=== PATIENT | female | born 1975 | race American Indian/Alaskan Native ===

== ENCOUNTER 2017-03-04 10:00 | Emergency (ER) | payer MEDICAID ==
[2017-03-04 10:14] VITALS: BP 149/95
--- NOTE | 2017-03-04 10:34 | EDM.PDOCBH ---
ED HPI GENERAL MEDICAL PROBLEM - General Chief Complaint: Drug or Alcohol Abuse Stated Complaint: MEDICAL VIA [facility]TH Time Seen by Provider: 03/04/17 10:34 Source of Information: Reports: Patient History Limitations: Reports: No Limitations - History of Present Illness INITIAL COMMENTS - FREE TEXT/NARRATIVE: pt arrived wanting to go to detox. She took an ambulance to the hosp because she was feeling so poorly. She has vomitd for the last several days. Onset: Gradual, Other (pt last drank at 3 am. ) Duration: Hour(s): Location: Reports: Generalized, Other (pt is generally feeling week. ) - Related Data Allergies Allergy/AdvReac Type Severity Reaction Status Date / Time sertraline HCl [From Zoloft] Allergy Hives Verified 03/04/17 10:24 Sulfa (Sulfonamide Allergy Hives Verified 03/04/17 10:24 Antibiotics) Home Meds: Home Meds NK [No Known Home Meds] 03/04/17 [History] Past Medical History HEENT History: Reports: Impaired Vision Psychiatric History: Reports: Addiction Social & Family History - Tobacco Use Smoking Status *Q: Never Smoker Second Hand Smoke Exposure: Yes - Alcohol Use Days Per Week of Alcohol Use: 0 - Recreational Drug Use Recreational Drug Use: No Drug Use in Last 12 Months: Yes Recreational Drug Type: Reports: Methamphetamine Recreational Drug Use Frequency: Weekly ED ROS GENERAL - Review of Systems Review Of Systems: See Below Constitutional: Reports: No Symptoms HEENT: Reports: No Symptoms Respiratory: Reports: No Symptoms Cardiovascular: Reports: No Symptoms Endocrine: Reports: No Symptoms GI/Abdominal: Reports: Nausea, Vomiting : Reports: No Symptoms Musculoskeletal: Reports: Other (pt is shakey. ) Skin: Reports: No Symptoms ED EXAM, BEHAVIORAL HEALTH - Physical Exam Exam: See Below Text/Narrative:: pt drank last about 3 am. She is not using street drugs by history. She has been vomiting for the past 8 hours. She had fluids startd in the ambulance. Exam Limited By: No Limitations General Appearance: Alert, No Apparent Distress Ears: Normal TMs Nose: Normal Inspection Throat/Mouth: Normal Inspection Head: Atraumatic Neck: Normal Inspection Respiratory/Chest: No Respiratory Distress Cardiovascular: Regular Rate, Rhythm GI/Abdominal: Soft, Non-Tender (Female) Exam: Deferred Rectal (Female) Exam: Deferred Back Exam: Normal Inspection Extremities: Normal Inspection Neurological: Alert, Normal Cognition Psychiatric: Normal Affect COURSE, BEHAVIORAL HEALTH COMP - Course Vital Signs: Last Vital Signs Temp 36.4 C 03/04/17 11:30 Pulse 85 03/04/17 11:30 Resp 16 03/04/17 11:30 BP 149/95 H 03/04/17 11:30 Pulse Ox 100 03/04/17 11:30 Orders, Labs, Meds: Active Orders 24 hr Category Date Time Status Sodium Chloride 0.9% [Normal Saline] 1,000 ml Med 03/04/17 10:45 Active IV ASDIRECTED Sodium Chloride 0.9% [Normal Saline] 1,000 ml Med 03/04/17 11:45 Active IV ASDIRECTED Medication Orders Sodium Chloride (Normal Saline) 1,000 mls @ 999 mls/hr IV ASDIRECTED EMMA Last Admin: 03/04/17 11:50 Dose: 999 mls/hr Sodium Chloride (Normal Saline) 1,000 mls @ 999 mls/hr IV ASDIRECTED EMMA Last Admin: 03/04/17 11:50 Dose: 999 mls/hr Laboratory Tests 03/04/17 03/04/17 03/04/17 Range/Units 10:35 10:35 10:51 WBC 9.6 (4.5-11.0) K/uL RBC 4.70 (3.30-5.50) M/uL Hgb 14.4 (12.0-15.0) g/dL Hct 42.4 (36.0-48.0) % MCV 90 (80-98) fL MCH 31 (27-31) pg MCHC 34 (32-36) % Plt Count 188 (150-400) K/uL Neut % (Auto) 82 H (36-66) % Lymph % (Auto) 11 L (24-44) % [place] % (Auto) 6 (2-6) % Eos % (Auto) 0 L (2-4) % Baso % (Auto) 1 (0-1) % Sodium 139 L (140-148) mmol/L Potassium 4.2 (3.6-5.2) mmol/L Chloride 105 (100-108) mmol/L Carbon Dioxide 23 (21-32) mmol/L Anion Gap 15.2 H (5.0-14.0) mmol/L BUN 15 (7-18) mg/dL Creatinine 0.6 (0.6-1.0) mg/dL Est Cr Clr Drug Dosing 106.55 mL/min Estimated GFR (MDRD) > 60 (>60) Glucose 92 (74-106) mg/dL Calcium 8.3 L (8.5-10.1) mg/dL Total Bilirubin 0.7 (0.2-1.0) mg/dL AST 67 H (15-37) U/L ALT 73 (12-78) U/L Alkaline Phosphatase 72 (46-116) U/L Total Protein 7.4 (6.4-8.2) g/dL Albumin 3.5 (3.4-5.0) g/dL Globulin 3.9 H (2.3-3.5) g/dL Albumin/Globulin Ratio 0.9 L (1.2-2.2) Lipase (73-393) U/L Urine Color Urine Appearance Urine pH (4.5-8.0) Ur Specific [place] (1.008-1.030) Urine Protein (NEGATIVE) mg/dL Urine Glucose (UA) (NEGATIVE) mg/dL Urine Ketones (NEGATIVE) mg/dL Urine Occult Blood (NEGATIVE) Urine Nitrite (NEGATIVE) Urine Bilirubin (NEGATIVE) Urine Urobilinogen (NORMAL) mg/dL Ur Leukocyte Esterase (NEGATIVE) Urine RBC (0-5) Urine WBC (0-5) Ur Epithelial Cells Amorphous Sediment Urine Bacteria Urine Mucus Urine Opiates Screen (NEGATIVE) Ur Oxycodone Screen (NEGATIVE) Urine Methadone Screen (NEGATIVE) Ur Propoxyphene Screen (NEGATIVE) Ur Barbiturates Screen (NEGATIVE) Ur Tricyclics Screen (NEGATIVE) Ur Phencyclidine Scrn (NEGATIVE) Ur Amphetamine Screen (NEGATIVE) U Methamphetamines Scrn (NEGATIVE) Urine MDMA Screen (NEGATIVE) U Benzodiazepines Scrn (NEGATIVE) U Cocaine Metab Screen (NEGATIVE) U Marijuana (THC) Screen (NEGATIVE) Ethyl Alcohol < 3 mg/dL 03/04/17 03/04/17 03/04/17 Range/Units 11:40 11:40 11:41 WBC (4.5-11.0) K/uL RBC (3.30-5.50) M/uL Hgb (12.0-15.0) g/dL Hct (36.0-48.0) % MCV (80-98) fL MCH (27-31) pg MCHC (32-36) % Plt Count (150-400) K/uL Neut % (Auto) (36-66) % Lymph % (Auto) (24-44) % [place] % (Auto) (2-6) % Eos % (Auto) (2-4) % Baso % (Auto) (0-1) % Sodium (140-148) mmol/L Potassium (3.6-5.2) mmol/L Chloride (100-108) mmol/L Carbon Dioxide (21-32) mmol/L Anion Gap (5.0-14.0) mmol/L BUN (7-18) mg/dL Creatinine (0.6-1.0) mg/dL Est Cr Clr Drug Dosing mL/min Estimated GFR (MDRD) (>60) Glucose (74-106) mg/dL Calcium (8.5-10.1) mg/dL Total Bilirubin (0.2-1.0) mg/dL AST (15-37) U/L ALT (12-78) U/L Alkaline Phosphatase (46-116) U/L Total Protein (6.4-8.2) g/dL Albumin (3.4-5.0) g/dL Globulin (2.3-3.5) g/dL Albumin/Globulin Ratio (1.2-2.2) Lipase 122 (73-393) U/L Urine Color Yellow Urine Appearance Clear Urine pH 6.0 (4.5-8.0) Ur Specific [place] 1.020 (1.008-1.030) Urine Protein Negative (NEGATIVE) mg/dL Urine Glucose (UA) Normal (NEGATIVE) mg/dL Urine Ketones 150 H (NEGATIVE) mg/dL Urine Occult Blood Negative (NEGATIVE) Urine Nitrite Negative (NEGATIVE) Urine Bilirubin Negative (NEGATIVE) Urine Urobilinogen Normal (NORMAL) mg/dL Ur Leukocyte Esterase Negative (NEGATIVE) Urine RBC Not seen (0-5) Urine WBC 0-5 (0-5) Ur Epithelial Cells Few Amorphous Sediment Not seen Urine Bacteria Not seen Urine Mucus Rare Urine Opiates Screen Negative (NEGATIVE) Ur Oxycodone Screen Negative (NEGATIVE) Urine Methadone Screen Negative (NEGATIVE) Ur Propoxyphene Screen Negative (NEGATIVE) Ur Barbiturates Screen Negative (NEGATIVE) Ur Tricyclics Screen Negative (NEGATIVE) Ur Phencyclidine Scrn Negative (NEGATIVE) Ur Amphetamine Screen Positive H (NEGATIVE) U Methamphetamines Scrn Positive H (NEGATIVE) Urine MDMA Screen Negative (NEGATIVE) U Benzodiazepines Scrn Negative (NEGATIVE) U Cocaine Metab Screen Negative (NEGATIVE) U Marijuana (THC) Screen Negative (NEGATIVE) Ethyl Alcohol mg/dL Medications Generic Name Dose Route Start Last Admin Trade Name Freq PRN Reason Stop Dose Admin Sodium Chloride 1,000 mls @ 999 mls/hr 03/04/17 10:45 03/04/17 11:50 Normal Saline IV 999 mls/hr ASDIRECTED EMMA Administration Sodium Chloride 1,000 mls @ 999 mls/hr 03/04/17 11:45 03/04/17 11:50 Normal Saline IV 999 mls/hr ASDIRECTED EMMA Administration Discontinued Medications Generic Name Dose Route Start Last Admin Trade Name Freq PRN Reason Stop Dose Admin Lorazepam 1 mg 03/04/17 10:50 03/04/17 11:50 Ativan IVPUSH 03/04/17 10:51 1 mg ONETIME ONE Administration Ondansetron HCl 4 mg 03/04/17 11:41 03/04/17 11:50 Zofran IVPUSH 03/04/17 11:42 4 mg ONETIME ONE Administration Ondansetron HCl Confirm 03/04/17 11:42 03/04/17 11:51 Zofran Administered 03/04/17 11:43 Not Given Dose 4 mg .ROUTE .ST-MED ONE Medical Clearance: 03/04/17 11:40 pt arrived nauseated. She was given zoforan in the ambulance she had a liter of fluid. 03/04/17 13:27 pt has a mild elevation in the liver enzymes. Her etoh was not high. Pt is positive for meth. 03/04/17 13:29 Departure - Departure Time of Disposition: 13:31 Disposition: DC/Tfer to Psych Hosp/Unit 65 Condition: Fair Clinical Impression: Alcohol abuse, Methamphetamine abuse - Discharge Information Referrals: PCP,None [Primary Care Provider] - Forms: ED Department Discharge Care Plan Goals: to detox, pt has a rash which may be related to meth. She can use some over the counter cortisone cream. if persistent should be rechecked. - My Orders Last 24 Hours: My Active Orders 03/04/17 10:45 Sodium Chloride 0.9% [Normal Saline] 1,000 ml IV ASDIRECTED 03/04/17 11:45 Sodium Chloride 0.9% [Normal Saline] 1,000 ml IV ASDIRECTED - Assessment/Plan Last 24 Hours: My Active Orders 03/04/17 10:45 Sodium Chloride 0.9% [Normal Saline] 1,000 ml IV ASDIRECTED 03/04/17 11:45 Sodium Chloride 0.9% [Normal Saline] 1,000 ml IV ASDIRECTED
[2017-03-04] MEDS ORDERED: Sodium Chloride 0.9% 1,000 ML IV SCH ×2 (10:45→11:45)
[2017-03-04] MEDS ORDERED: LORazepam 2 MG/ML MDV IVPUSH ONE (10:50)
[2017-03-04] MEDS ORDERED: Ondansetron 4 MG/2 ML SDV IVPUSH ONE (11:41)
[2017-03-04] MEDS ORDERED: Ondansetron 4 MG/2 ML SDV ONE (11:42)
== END 2017-03-04 15:14 ==
LOC: JP.ED 10:03
DX: F10.120 Alcohol abuse with intoxication, uncomplicated (principal); F15.10 Other stimulant abuse, uncomplicated; Y90.0 Blood alcohol level of less than 20 mg/100 ml
CPT/HCPCS: 36415; 80053; 80305; 81001; 83690; 85025; 96361; 96374; 96375; 99285; G0480; J2060; J2405; J7040

== ENCOUNTER 2017-05-02 20:45 | Emergency (ER) | payer MEDICAID ==
--- NOTE | 2017-05-02 21:36 | EDM.PDOC ---
ED HPI GENERAL MEDICAL PROBLEM - General Chief Complaint: Drug or Alcohol Abuse Stated Complaint: MEDICAL VIA [facility] Time Seen by Provider: 05/02/17 21:22 Source of Information: Reports: Patient, EMS, Old Records, RN Notes Reviewed History Limitations: Reports: Intoxication - History of Present Illness INITIAL COMMENTS - FREE TEXT/NARRATIVE: Police had checked on her, and ended up calling EMS because she was intoxicated. She was discharged from long term yesterday, violated her probiotic consuming alcohol. She is not in arrest currently but police are aware of her location of course. She wishes to be transferred to [facility]. She has been there in the past, reports that her longest period of sobriety was 6 months. She had 750 mL of vodka by herself between 3 and 9 PM today. No abdominal pain no vomiting No injuries She does feel a bit sad, and a cousin of hers today, found frozen to in his car. She is not suicidal Has an IUD in place, it has been present for 4 years denies pain Pain Score (Numeric/FACES): 0 - Related Data Allergies Allergy/AdvReac Type Severity Reaction Status Date / Time sertraline HCl [From Zoloft] Allergy Hives Verified 05/02/17 21:10 Sulfa (Sulfonamide Allergy Hives Verified 05/02/17 21:10 Antibiotics) Home Meds: Home Meds NK [No Known Home Meds] 03/04/17 [History] Past Medical History HEENT History: Reports: Impaired Vision [employer] History: Reports: Other (See Below) Other OB/BYN History: IUD Neurological History: Reports: Concussion Psychiatric History: Reports: Addiction, Other (See Below) Other Psychiatric History: ETOH Hematologic History: Reports: Anemia Dermatologic History: Reports: Other (See Below) Other Dermatologic History: dry skin - Infectious Disease History Infectious Disease History: Reports: Chicken Pox, Hepatitis A Social & Family History - Tobacco Use Smoking Status *Q: Never Smoker Second Hand Smoke Exposure: Yes - Alcohol Use Days Per Week of Alcohol Use: 0 - Recreational Drug Use Recreational Drug Use: No Drug Use in Last 12 Months: Yes Recreational Drug Type: Reports: Methamphetamine Recreational Drug Use Frequency: Weekly ED ROS GENERAL - Review of Systems Review Of Systems: Unable To Obtain (A call intoxication) ED EXAM, GENERAL - Physical Exam Exam: See Below Exam Limited By: Intoxication General Appearance: No Apparent Distress, Lethargic, Other (Vital signs are normal, very slurred speech) Eye Exam: Bilateral Eye: Normal Inspection Ears: Normal External Exam, Normal Canal, Hearing Grossly Normal Nose: Normal Inspection, Normal Mucosa Throat/Mouth: Normal Oropharynx, Other (Dental replacements, some dental tenderness in the right lower teeth) Head: Atraumatic Neck: Normal Inspection. No: Lymphadenopathy (R), Lymphadenopathy (L) Respiratory/Chest: No Respiratory Distress, Lungs Clear, No Accessory Muscle Use , Chest Non-Tender Cardiovascular: Normal Peripheral Pulses, Regular Rate, Rhythm GI/Abdominal: Normal Bowel Sounds, Soft, Non-Tender, No Distention Back Exam: Normal Inspection Neurological: No Motor/Sensory Deficits, Slow to Respond Psychiatric: Other (Labile, sometimes smiling and laughing other times withdrawn ) Skin Exam: Warm, Dry, Intact, Normal Color, No Rash Course - Vital Signs Last Recorded V/S: Last Vital Signs Temp 36.3 C 05/03/17 06:04 Pulse 84 05/03/17 06:04 Resp 20 05/03/17 06:04 BP 125/70 05/03/17 06:04 Pulse Ox 95 05/03/17 06:04 - Orders/Labs/Meds Labs: Laboratory Tests 05/02/17 05/02/17 05/02/17 Range/Units 21:23 21:23 21:23 WBC (4.5-11.0) K/uL RBC (3.30-5.50) M/uL Hgb (12.0-15.0) g/dL Hct (36.0-48.0) % MCV (80-98) fL MCH (27-31) pg MCHC (32-36) % Plt Count (150-400) K/uL Sodium (140-148) mmol/L Potassium (3.6-5.2) mmol/L Chloride (100-108) mmol/L Carbon Dioxide (21-32) mmol/L Anion Gap (5.0-14.0) mmol/L BUN (7-18) mg/dL Creatinine (0.6-1.0) mg/dL Est Cr Clr Drug Dosing mL/min Estimated GFR (MDRD) (>60) Glucose (74-106) mg/dL Calcium (8.5-10.1) mg/dL Total Bilirubin (0.2-1.0) mg/dL AST (15-37) U/L ALT (12-78) U/L Alkaline Phosphatase (46-116) U/L Total Protein (6.4-8.2) g/dL Albumin (3.4-5.0) g/dL Globulin (2.3-3.5) g/dL Albumin/Globulin Ratio (1.2-2.2) TSH, Ultra Sensitive (0.358-3.740) uIU/mL Urine Color Yellow Urine Appearance Slightly cloudy Urine pH 7.0 (4.5-8.0) Ur Specific [place] 1.010 (1.008-1.030) Urine Protein Negative (NEGATIVE) mg/dL Urine Glucose (UA) Normal (NEGATIVE) mg/dL Urine Ketones Negative (NEGATIVE) mg/dL Urine Occult Blood Negative (NEGATIVE) Urine Nitrite Negative (NEGATIVE) Urine Bilirubin Negative (NEGATIVE) Urine Urobilinogen Normal (NORMAL) mg/dL Ur Leukocyte Esterase Moderate (NEGATIVE) Urine RBC Not seen (0-5) Urine WBC 5-10 H (0-5) Ur Epithelial Cells Moderate Amorphous Sediment Few Urine Bacteria Moderate Urine Mucus Not seen Urine Other Urine HCG, Qual Negative Salicylates (2.0-20.0) mg/dL Urine Opiates Screen Negative (NEGATIVE) Ur Oxycodone Screen Negative (NEGATIVE) Urine Methadone Screen Negative (NEGATIVE) Ur Propoxyphene Screen Negative (NEGATIVE) Acetaminophen (10.0-30.0) ug/mL Ur Barbiturates Screen Negative (NEGATIVE) Ur Tricyclics Screen Negative (NEGATIVE) Ur Phencyclidine Scrn Negative (NEGATIVE) Ur Amphetamine Screen Negative (NEGATIVE) U Methamphetamines Scrn Negative (NEGATIVE) Urine MDMA Screen Negative (NEGATIVE) U Benzodiazepines Scrn Positive H (NEGATIVE) U Cocaine Metab Screen Negative (NEGATIVE) U Marijuana (THC) Screen Negative (NEGATIVE) Ethyl Alcohol mg/dL 05/02/17 05/02/17 05/02/17 Range/Units 21:29 21:29 21:29 WBC 9.3 (4.5-11.0) K/uL RBC 4.70 (3.30-5.50) M/uL Hgb 14.2 (12.0-15.0) g/dL Hct 42.1 (36.0-48.0) % MCV 90 (80-98) fL MCH 30 (27-31) pg MCHC 34 (32-36) % Plt Count 289 (150-400) K/uL Sodium 151 H (140-148) mmol/L Potassium 3.6 (3.6-5.2) mmol/L Chloride 112 H (100-108) mmol/L Carbon Dioxide 27 (21-32) mmol/L Anion Gap 15.6 H (5.0-14.0) mmol/L BUN 12 (7-18) mg/dL Creatinine 0.6 (0.6-1.0) mg/dL Est Cr Clr Drug Dosing 111.03 mL/min Estimated GFR (MDRD) > 60 (>60) Glucose 103 (74-106) mg/dL Calcium 8.0 L (8.5-10.1) mg/dL Total Bilirubin 0.2 D (0.2-1.0) mg/dL AST 24 (15-37) U/L ALT 24 (12-78) U/L Alkaline Phosphatase 59 (46-116) U/L Total Protein 6.5 (6.4-8.2) g/dL Albumin 3.1 L (3.4-5.0) g/dL Globulin 3.4 (2.3-3.5) g/dL Albumin/Globulin Ratio 0.9 L (1.2-2.2) TSH, Ultra Sensitive 0.352 L (0.358-3.740) uIU/mL Urine Color Urine Appearance Urine pH (4.5-8.0) Ur Specific [place] (1.008-1.030) Urine Protein (NEGATIVE) mg/dL Urine Glucose (UA) (NEGATIVE) mg/dL Urine Ketones (NEGATIVE) mg/dL Urine Occult Blood (NEGATIVE) Urine Nitrite (NEGATIVE) Urine Bilirubin (NEGATIVE) Urine Urobilinogen (NORMAL) mg/dL Ur Leukocyte Esterase (NEGATIVE) Urine RBC (0-5) Urine WBC (0-5) Ur Epithelial Cells Amorphous Sediment Urine Bacteria Urine Mucus Urine Other Urine HCG, Qual Salicylates 1.2 L (2.0-20.0) mg/dL Urine Opiates Screen (NEGATIVE) Ur Oxycodone Screen (NEGATIVE) Urine Methadone Screen (NEGATIVE) Ur Propoxyphene Screen (NEGATIVE) Acetaminophen 0.0 L (10.0-30.0) ug/mL Ur Barbiturates Screen (NEGATIVE) Ur Tricyclics Screen (NEGATIVE) Ur Phencyclidine Scrn (NEGATIVE) Ur Amphetamine Screen (NEGATIVE) U Methamphetamines Scrn (NEGATIVE) Urine MDMA Screen (NEGATIVE) U Benzodiazepines Scrn (NEGATIVE) U Cocaine Metab Screen (NEGATIVE) U Marijuana (THC) Screen (NEGATIVE) Ethyl Alcohol mg/dL 05/02/17 Range/Units 21:29 WBC (4.5-11.0) K/uL RBC (3.30-5.50) M/uL Hgb (12.0-15.0) g/dL Hct (36.0-48.0) % MCV (80-98) fL MCH (27-31) pg MCHC (32-36) % Plt Count (150-400) K/uL Sodium (140-148) mmol/L Potassium (3.6-5.2) mmol/L Chloride (100-108) mmol/L Carbon Dioxide (21-32) mmol/L Anion Gap (5.0-14.0) mmol/L BUN (7-18) mg/dL Creatinine (0.6-1.0) mg/dL Est Cr Clr Drug Dosing mL/min Estimated GFR (MDRD) (>60) Glucose (74-106) mg/dL Calcium (8.5-10.1) mg/dL Total Bilirubin (0.2-1.0) mg/dL AST (15-37) U/L ALT (12-78) U/L Alkaline Phosphatase (46-116) U/L Total Protein (6.4-8.2) g/dL Albumin (3.4-5.0) g/dL Globulin (2.3-3.5) g/dL Albumin/Globulin Ratio (1.2-2.2) TSH, Ultra Sensitive (0.358-3.740) uIU/mL Urine Color Urine Appearance Urine pH (4.5-8.0) Ur Specific [place] (1.008-1.030) Urine Protein (NEGATIVE) mg/dL Urine Glucose (UA) (NEGATIVE) mg/dL Urine Ketones (NEGATIVE) mg/dL Urine Occult Blood (NEGATIVE) Urine Nitrite (NEGATIVE) Urine Bilirubin (NEGATIVE) Urine Urobilinogen (NORMAL) mg/dL Ur Leukocyte Esterase (NEGATIVE) Urine RBC (0-5) Urine WBC (0-5) Ur Epithelial Cells Amorphous Sediment Urine Bacteria Urine Mucus Urine Other Urine HCG, Qual Salicylates (2.0-20.0) mg/dL Urine Opiates Screen (NEGATIVE) Ur Oxycodone Screen (NEGATIVE) Urine Methadone Screen (NEGATIVE) Ur Propoxyphene Screen (NEGATIVE) Acetaminophen (10.0-30.0) ug/mL Ur Barbiturates Screen (NEGATIVE) Ur Tricyclics Screen (NEGATIVE) Ur Phencyclidine Scrn (NEGATIVE) Ur Amphetamine Screen (NEGATIVE) U Methamphetamines Scrn (NEGATIVE) Urine MDMA Screen (NEGATIVE) U Benzodiazepines Scrn (NEGATIVE) U Cocaine Metab Screen (NEGATIVE) U Marijuana (THC) Screen (NEGATIVE) Ethyl Alcohol 320 mg/dL Meds: Medications Discontinued Medications Generic Name Dose Route Start Last Admin Trade Name Freq PRN Reason Stop Dose Admin Ondansetron HCl 4 mg 05/03/17 05:59 05/03/17 06:02 Zofran Odt PO 05/03/17 06:00 4 mg ONETIME ONE Administration - Re-Assessments/Exams Free Text/Narrative Re-Assessment/Exam: 05/02/17 21:35 41-year-old female with all call intoxication, history of chronic alcoholism 05/03/17 00:02 at this point she has been accepted as a detox transfer, however we have been unable to obtain suitable transportation for her at this time since detox and Cannot transfer females. Departure - Departure Time of Disposition: 06:24 Disposition: DC/Tfer to Inpt Rehab Fac 62 Condition: Poor Clinical Impression: Alcohol intoxication in alcoholism with blood level over 0.3 Qualifiers: Complication of substance-induced condition: uncomplicated Qualified Code(s): F10.220 - Alcohol dependence with intoxication, uncomplicated - Discharge Information Referrals: PCP,None [Primary Care Provider] - Forms: ED Department Discharge
[2017-05-03] MEDS ORDERED: Ondansetron 4 MG Tab.DIS PO ONE (05:59)
[2017-05-03 06:05] VITALS: BP 125/70
== END 2017-05-03 06:40 ==
LOC: JP.ED 20:45
DX: F10.220 Alcohol dependence with intoxication, uncomplicated (principal); Y90.8 Blood alcohol level of 240 mg/100 ml or more; Z88.2 Allergy status to sulfonamides; Z88.8 Allergy status to other drugs, medicaments and biological substances
CPT/HCPCS: 36415; 80053; 80305; 81001; 81025; 84443; 85027; 99285; A9270; G0480

== ENCOUNTER 2017-06-03 12:35 | Emergency (ER) | payer MEDICAID ==
--- NOTE | 2017-06-03 13:17 | EDM.PDOCBH ---
ED HPI GENERAL MEDICAL PROBLEM - General Chief Complaint: Drug or Alcohol Abuse Stated Complaint: MEDICAL VIA NORTH Time Seen by Provider: 06/03/17 13:05 Source of Information: Reports: Patient, EMS, Old Records, RN History Limitations: Reports: No Limitations - History of Present Illness INITIAL COMMENTS - FREE TEXT/NARRATIVE: 41 yo female brought in from her home in [place] for intoxication. Is a known alcoholic. Is here for medical clearance before admission to [place]. 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: Reports: Other (see below) (none) - Related Data Allergies Allergy/AdvReac Type Severity Reaction Status Date / Time sertraline HCl [From Zoloft] Allergy Hives Verified 05/02/17 21:10 Sulfa (Sulfonamide Allergy Hives Verified 05/02/17 21:10 Antibiotics) Home Meds: Home Meds NK [No Known Home Meds] 03/04/17 [History] Past Medical History HEENT History: Reports: Impaired Vision 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: Other (See Below) Other OB/BYN History: IUD Neurological History: Reports: Concussion Psychiatric History: Reports: Addiction, Other (See Below) Other Psychiatric History: ETOH Hematologic History: Reports: Anemia Dermatologic History: Reports: Other (See Below) Other Dermatologic History: dry skin - Infectious Disease History Infectious Disease History: Reports: Chicken Pox, Hepatitis A Social & Family History - Tobacco Use Smoking Status *Q: Never Smoker Second Hand Smoke Exposure: Yes - Alcohol Use Days Per Week of Alcohol Use: 0 - Recreational Drug Use Recreational Drug Use: No Drug Use in Last 12 Months: Yes Recreational Drug Type: Reports: Methamphetamine Recreational Drug Use Frequency: Weekly ED ROS GENERAL - Review of Systems Review Of Systems: See Below Constitutional: Reports: No Symptoms HEENT: Reports: No Symptoms Respiratory: Reports: No Symptoms Cardiovascular: Reports: No Symptoms GI/Abdominal: Reports: No Symptoms : Reports: No Symptoms Musculoskeletal: Reports: No Symptoms Skin: Reports: No Symptoms Neurological: Reports: No Symptoms Psychiatric: Reports: No Symptoms ED EXAM, BEHAVIORAL HEALTH - Physical Exam Exam: See Below Exam Limited By: No Limitations General Appearance: Alert, WD/WN, No Apparent Distress Eye Exam: Bilateral Eye: Normal Inspection Ears: Normal External Exam, Normal Canal, Hearing Grossly Normal, Normal TMs Nose: Normal Inspection, Normal Mucosa, No Blood Throat/Mouth: Normal Inspection, Normal Lips, Normal Oropharynx, Normal Voice, No Airway Compromise Head: Atraumatic, Normocephalic Neck: Normal Inspection, Supple, Non-Tender Respiratory/Chest: No Respiratory Distress, Lungs Clear, Normal Breath Sounds, No Accessory Muscle Use Cardiovascular: Regular Rate, Rhythm, No Edema GI/Abdominal: Normal Bowel Sounds, Soft, Non-Tender Back Exam: Normal Inspection. No: CVA Tenderness (R), CVA Tenderness (L) Extremities: Normal Inspection, Normal Range of Motion Neurological: Alert, Normal Mood/Affect, CN II-XII Intact, Normal Cognition, No Motor/Sensory Deficits, Oriented x 3 Psychiatric: Alert, Normal Affect, Normal Cognition, Normal Mood, Oriented Skin Exam: Warm, Dry, Intact, Normal color, No rash COURSE, BEHAVIORAL HEALTH COMP - Course Orders, Labs, Meds: Active Orders 24 hr Category Date Time Status BASIC METABOLIC PANEL,BMP [CHEM] Stat Lab 06/03/17 13:19 Received ETHANOL BLOOD MEDICAL [CHEM] Stat Lab 06/03/17 13:19 Received Laboratory Tests 06/03/1718 18 Range/Units 13:19 13:23 13:23 WBC 8.9 (4.5-11.0) K/uL RBC 5.38 (3.30-5.50) M/uL Hgb 16.4 H D (12.0-15.0) g/dL Hct 47.5 (36.0-48.0) % MCV 88 (80-98) fL MCH 31 (27-31) pg MCHC 35 (32-36) % Plt Count 262 (150-400) K/uL Urine Color Yellow Urine Appearance Turbid Urine pH 5.0 (4.5-8.0) Ur Specific Brandon 1.010 (1.008-1.030) Urine Protein Negative (NEGATIVE) mg/dL Urine Glucose (UA) Normal (NEGATIVE) mg/dL Urine Ketones Negative (NEGATIVE) mg/dL Urine Occult Blood Large (NEGATIVE) Urine Nitrite Negative (NEGATIVE) Urine Bilirubin Negative (NEGATIVE) Urine Urobilinogen Normal (NORMAL) mg/dL Ur Leukocyte Esterase Small (NEGATIVE) Urine RBC 5-10 H (0-5) Urine WBC 0-5 (0-5) Ur Epithelial Cells Few Amorphous Sediment Rare Urine Bacteria Rare Urine Mucus Not seen Urine Opiates Screen Negative (NEGATIVE) Ur Oxycodone Screen Negative (NEGATIVE) Urine Methadone Screen Negative (NEGATIVE) Ur Propoxyphene Screen Negative (NEGATIVE) Ur Barbiturates Screen Negative (NEGATIVE) Ur Tricyclics Screen Negative (NEGATIVE) Ur Phencyclidine Scrn Negative (NEGATIVE) Ur Amphetamine Screen Negative (NEGATIVE) U Methamphetamines Scrn Negative (NEGATIVE) Urine MDMA Screen Negative (NEGATIVE) U Benzodiazepines Scrn Negative (NEGATIVE) U Cocaine Metab Screen Negative (NEGATIVE) U Marijuana (THC) Screen Negative (NEGATIVE) Departure - Departure Time of Disposition: 13:33 Disposition: El[facility] 07 Condition: Fair Clinical Impression: Alcohol abuse Alcohol intoxication Qualifiers: Complication of substance-induced condition: uncomplicated Qualified Code(s): F10.920 - Alcohol use, unspecified with intoxication, uncomplicated - Discharge Information Referrals: PCP,None [Primary Care Provider] - Forms: ED Department Discharge - My Orders Last 24 Hours: My Active Orders 06/03/17 13:19 BASIC METABOLIC PANEL,BMP [CHEM] Stat ETHANOL BLOOD MEDICAL [CHEM] Stat - Assessment/Plan Last 24 Hours: My Active Orders 06/03/17 13:19 BASIC METABOLIC PANEL,BMP [CHEM] Stat ETHANOL BLOOD MEDICAL [CHEM] Stat
[2017-06-03 14:18] VITALS: BP 139/99
== END 2017-06-03 13:35 | disposition left against medical advice (07) ==
LOC: JP.ED 12:35
DX: F10.220 Alcohol dependence with intoxication, uncomplicated (principal); Y90.9 Presence of alcohol in blood, level not specified; Z88.2 Allergy status to sulfonamides; Z88.8 Allergy status to other drugs, medicaments and biological substances
CPT/HCPCS: 36415; 80048; 80305; 81001; 85027; 99284; G0480

== ENCOUNTER 2017-08-13 21:41 | Emergency (ER) | payer MEDICAID ==
[2017-08-13 21:50] VITALS: BP 130/87
--- NOTE | 2017-08-13 22:36 | EDM.PDOCBH ---
ED HPI GENERAL MEDICAL PROBLEM - General Chief Complaint: Drug or Alcohol Abuse Stated Complaint: ANXIETY Time Seen by Provider: 08/13/17 22:20 Source of Information: Reports: Patient, Old Records, RN History Limitations: Reports: No Limitations - History of Present Illness INITIAL COMMENTS - FREE TEXT/NARRATIVE: 41 yo NA female alcoholic present via EMS asking to go to [place]. Has been there before. Feels a little restless. Has no other complaints. Has been drinking today. 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: Other (see below) (none) - Related Data Allergies Allergy/AdvReac Type Severity Reaction Status Date / Time sertraline HCl [From Zoloft] Allergy Hives Verified 08/13/17 21:49 Sulfa (Sulfonamide Allergy Hives Verified 08/13/17 21:49 Antibiotics) Home Meds: Home Meds NK [No Known Home Meds] 03/04/17 [History] Past Medical History HEENT History: Reports: Impaired Vision 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 (See Below) Other OB/BYN History: IUD Neurological History: Reports: Concussion Psychiatric History: Reports: Addiction, Other (See Below) Other Psychiatric History: ETOH Hematologic History: Reports: Anemia Dermatologic History: Reports: Other (See Below) Other Dermatologic History: dry skin - Infectious Disease History Infectious Disease History: Reports: Chicken Pox, Hepatitis A Social & Family History - Tobacco Use Smoking Status *Q: Never Smoker Second Hand Smoke Exposure: Yes - Alcohol Use Days Per Week of Alcohol Use: 0 - Recreational Drug Use Recreational Drug Use: No Drug Use in Last 12 Months: Yes Recreational Drug Type: Reports: Methamphetamine Recreational Drug Use Frequency: Weekly ED ROS GENERAL - Review of Systems Review Of Systems: See Below Constitutional: Reports: No Symptoms HEENT: Reports: No Symptoms Respiratory: Reports: No Symptoms Cardiovascular: Reports: No Symptoms GI/Abdominal: Reports: No Symptoms : Reports: No Symptoms Musculoskeletal: Reports: No Symptoms Skin: Reports: No Symptoms Neurological: Reports: No Symptoms Psychiatric: Reports: No Symptoms ED EXAM, BEHAVIORAL HEALTH - Physical Exam Exam: See Below Exam Limited By: No Limitations General Appearance: Alert, WD/WN, No Apparent Distress Eye Exam: Bilateral Eye: Normal Inspection Ears: Normal External Exam, Normal Canal, Hearing Grossly Normal, Normal TMs Nose: Normal Inspection, Normal Mucosa, No Blood Throat/Mouth: Normal Inspection, Normal Lips, Normal Oropharynx, Normal Voice, No Airway Compromise Head: Atraumatic, Normocephalic Neck: Normal Inspection, Supple, Non-Tender Respiratory/Chest: No Respiratory Distress, Lungs Clear, Normal Breath Sounds, No Accessory Muscle Use Cardiovascular: Regular Rate, Rhythm GI/Abdominal: Normal Bowel Sounds, Soft, Non-Tender Back Exam: Normal Inspection. No: CVA Tenderness (R), CVA Tenderness (L) Extremities: Normal Inspection, Normal Range of Motion, Non-Tender, No Pedal Edema Neurological: Alert, Normal Mood/Affect, CN II-XII Intact, Normal Cognition, No Motor/Sensory Deficits, Oriented x 3 Psychiatric: Alert, Normal Affect, Normal Cognition, Normal Mood, Oriented Skin Exam: Warm, Dry, Intact, Normal color, No rash COURSE, BEHAVIORAL HEALTH COMP - Course Vital Signs: Last Vital Signs Temp 36.7 C 08/13/17 21:54 Pulse 86 08/13/17 21:54 Resp 18 08/13/17 21:54 BP 130/87 08/13/17 21:54 Pulse Ox 97 08/13/17 21:54 Orders, Labs, Meds: Laboratory Tests 08/13/17 Range/Units 21:57 Ethyl Alcohol 309 mg/dL Departure - Departure Time of Disposition: 00:00 Disposition: DC/Tfer to Other 70 Condition: Good Clinical Impression: Alcohol abuse Alcohol intoxication Qualifiers: Complication of substance-induced condition: uncomplicated Qualified Code(s): F10.920 - Alcohol use, unspecified with intoxication, uncomplicated Alcohol intoxication in alcoholism with blood level over 0.3 Qualifiers: Complication of substance-induced condition: uncomplicated Qualified Code(s): F10.220 - Alcohol dependence with intoxication, uncomplicated - Discharge Information Instructions: Alcohol Intoxication, [id number] Referrals: PCP,None [Primary Care Provider] - Forms: ED Department Discharge
== END 2017-08-13 23:25 | disposition other institution (70) ==
LOC: JP.ED 21:41
DX: F10.220 Alcohol dependence with intoxication, uncomplicated (principal); Y90.8 Blood alcohol level of 240 mg/100 ml or more; Z77.22 Contact with and (suspected) exposure to environmental tobacco smoke (acute) (chronic); Z88.2 Allergy status to sulfonamides; Z88.8 Allergy status to other drugs, medicaments and biological substances
CPT/HCPCS: 36415; 99285; G0480

== ENCOUNTER 2018-12-25 09:31 | Emergency (ER) | payer MEDICAID, OTHER ==
[2018-12-25 09:37] VITALS: BP 144/99; PULSE 69
--- NOTE | 2018-12-25 10:04 | EDM.PDOCBH ---
ED HPI GENERAL MEDICAL PROBLEM - General Chief Complaint: Drug or Alcohol Abuse Stated Complaint: MEDICAL VIA NORTH Time Seen by Provider: 12/25/18 09:58 Source of Information: Reports: Patient History Limitations: Reports: No Limitations - History of Present Illness INITIAL COMMENTS - FREE TEXT/NARRATIVE: pt has been having 10 to 12 drinks of vodka per day. She wants to get better. She has 2 children age 16 and 10. Her children are doing well. Onset: Today Duration: Hour(s): Location: Reports: Generalized Associated Symptoms: Reports: Nausea/Vomiting, Other (pt has been vomiting at home she is nauseated. She last drank 1 hour ago. 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 , Other (See Below) Other PULLING UNIT OPERATOR History: IUD Neurological History: Reports: Concussion Psychiatric History: Reports: Addiction, Other (See Below) Other Psychiatric History: ETOH Hematologic History: Reports: Anemia Dermatologic History: Reports: Other (See Below) Other Dermatologic History: dry skin - Infectious Disease History Infectious Disease History: Reports: Chicken Pox, Hepatitis A Social & Family History - Tobacco Use Smoking Status *Q: Never Smoker - Caffeine Use Caffeine Use: Reports: None - Alcohol Use Days Per Week of Alcohol Use: 7 Number of Drinks Per Day: 10 Total Drinks Per Week: 70 Date of Last Drink: 12/25/18 Time of Last Drink: 08:00 - Recreational Drug Use Recreational Drug Use: No - Living Situation & Occupation Living situation: Reports: with Family (lives with her Family) Occupation: Unemployed ED ROS GENERAL - Review of Systems Review Of Systems: See Below Constitutional: Reports: Decreased Appetite, Other (pt has been vomiting. ) HEENT: Reports: No Symptoms Respiratory: Reports: No Symptoms Cardiovascular: Reports: No Symptoms Endocrine: Reports: No Symptoms GI/Abdominal: Reports: Decreased Appetite, Nausea, Vomiting : Reports: No Symptoms Musculoskeletal: Reports: No Symptoms Skin: Reports: No Symptoms ED EXAM, BEHAVIORAL HEALTH - Physical Exam Exam: See Below Text/Narrative:: pt arrived with a history of very heavy drinking. She is interested in going to detox. She has had some upper abdomanal pain and has been vomiting for the past 2-3 days. Exam Limited By: No Limitations General Appearance: Alert, Anxious, Mild Distress, Other (pupils are equal and reactive. ) Ears: Normal TMs Nose: Normal Inspection Throat/Mouth: Normal Inspection Head: Atraumatic Neck: Normal Inspection Respiratory/Chest: No Respiratory Distress Cardiovascular: Regular Rate, Rhythm GI/Abdominal: Other (pt has mild tenderness in the upper abdoman. ) (Female) Exam: Deferred Rectal (Female) Exam: Deferred Back Exam: Normal Inspection Extremities: Normal Inspection Neurological: Alert, Normal Cognition, Oriented x 3 Psychiatric: Alert, Normal Cognition, Other (pt is intoxicated. ) COURSE, BEHAVIORAL HEALTH COMP - Course Vital Signs: Last Vital Signs Temp 35.2 C 12/25/18 09:45 Pulse 69 12/25/18 09:45 Resp 16 12/25/18 09:45 BP 144/99 H 12/25/18 09:45 Pulse Ox 94 L 12/25/18 09:45 Orders, Labs, Meds: Laboratory Tests 12/25/18 12/25/18 12/25/18 Range/Units 10:00 10:00 10:00 WBC 4.8 (4.5-11.0) K/uL RBC 3.84 (3.30-5.50) M/uL Hgb 12.2 D (12.0-15.0) g/dL Hct 36.5 (36.0-48.0) % MCV 95 (80-98) fL MCH 32 H (27-31) pg MCHC 33 (32-36) % Plt Count 83 L (150-400) K/uL Neut % (Auto) 50 (36-66) % Lymph % (Auto) 33 (24-44) % Morris % (Auto) 10 H (2-6) % Eos % (Auto) 4 (2-4) % Baso % (Auto) 4 H (0-1) % Sodium 140 (140-148) mmol/L Potassium 3.8 (3.6-5.2) mmol/L Chloride 103 (100-108) mmol/L Carbon Dioxide 25 (21-32) mmol/L Anion Gap 11.7 (5.0-14.0) mmol/L BUN 10 (7-18) mg/dL Creatinine 0.7 (0.6-1.0) mg/dL Est Cr Clr Drug Dosing 81.96 mL/min Estimated GFR (MDRD) > 60 (>60) Glucose 80 (74-106) mg/dL Calcium 8.4 L (8.5-10.1) mg/dL Total Bilirubin 0.9 (0.2-1.0) mg/dL AST 919 H D (15-37) U/L ALT 236 H (12-78) U/L Alkaline Phosphatase 184 H (46-116) U/L Total Protein 7.8 (6.4-8.2) g/dL Albumin 2.7 L (3.4-5.0) g/dL Globulin 5.1 H (2.3-3.5) g/dL Albumin/Globulin Ratio 0.5 L (1.2-2.2) Lipase (73-393) U/L Urine Color (YELLOW) Urine Appearance (CLEAR) Urine pH (5.0-8.0) Ur Specific Isabel (1.008-1.030) Urine Protein (NEGATIVE) mg/dL Urine Glucose (UA) (NEGATIVE) mg/dL Urine Ketones (NEGATIVE) mg/dL Urine Occult Blood (NEGATIVE) Urine Nitrite (NEGATIVE) Urine Bilirubin (NEGATIVE) Urine Urobilinogen (0.2-1.0) EU/dL Ur Leukocyte Esterase (NEGATIVE) Urine RBC (0-5) Urine WBC (0-5) Ur Epithelial Cells Amorphous Sediment Urine Bacteria Urine Mucus Urine Opiates Screen (NEGATIVE) Ur Oxycodone Screen (NEGATIVE) Urine Methadone Screen (NEGATIVE) Ur Propoxyphene Screen (NEGATIVE) Ur Barbiturates Screen (NEGATIVE) Ur Tricyclics Screen (NEGATIVE) Ur Phencyclidine Scrn (NEGATIVE) Ur Amphetamine Screen (NEGATIVE) U Methamphetamines Scrn (NEGATIVE) Urine MDMA Screen (NEGATIVE) U Benzodiazepines Scrn (NEGATIVE) U Cocaine Metab Screen (NEGATIVE) U Marijuana (THC) Screen (NEGATIVE) Ethyl Alcohol 297 mg/dL 12/25/18 12/25/18 12/25/18 Range/Units 10:42 10:49 10:49 WBC (4.5-11.0) K/uL RBC (3.30-5.50) M/uL Hgb (12.0-15.0) g/dL Hct (36.0-48.0) % MCV (80-98) fL MCH (27-31) pg MCHC (32-36) % Plt Count (150-400) K/uL Neut % (Auto) (36-66) % Lymph % (Auto) (24-44) % Morris % (Auto) (2-6) % Eos % (Auto) (2-4) % Baso % (Auto) (0-1) % Sodium (140-148) mmol/L Potassium (3.6-5.2) mmol/L Chloride (100-108) mmol/L Carbon Dioxide (21-32) mmol/L Anion Gap (5.0-14.0) mmol/L BUN (7-18) mg/dL Creatinine (0.6-1.0) mg/dL Est Cr Clr Drug Dosing mL/min Estimated GFR (MDRD) (>60) Glucose (74-106) mg/dL Calcium (8.5-10.1) mg/dL Total Bilirubin (0.2-1.0) mg/dL AST (15-37) U/L ALT (12-78) U/L Alkaline Phosphatase (46-116) U/L Total Protein (6.4-8.2) g/dL Albumin (3.4-5.0) g/dL Globulin (2.3-3.5) g/dL Albumin/Globulin Ratio (1.2-2.2) Lipase 2838 H (73-393) U/L Urine Color Yellow (YELLOW) Urine Appearance Clear (CLEAR) Urine pH 7.0 (5.0-8.0) Ur Specific Isabel 1.010 (1.008-1.030) Urine Protein Negative (NEGATIVE) mg/dL Urine Glucose (UA) Negative (NEGATIVE) mg/dL Urine Ketones Negative (NEGATIVE) mg/dL Urine Occult Blood Moderate H (NEGATIVE) Urine Nitrite Negative (NEGATIVE) Urine Bilirubin Negative (NEGATIVE) Urine Urobilinogen 0.2 (0.2-1.0) EU/dL Ur Leukocyte Esterase Negative (NEGATIVE) Urine RBC 10-20 H (0-5) Urine WBC 0-5 (0-5) Ur Epithelial Cells Moderate Amorphous Sediment Not seen Urine Bacteria Few Urine Mucus Not seen Urine Opiates Screen Negative (NEGATIVE) Ur Oxycodone Screen Negative (NEGATIVE) Urine Methadone Screen Negative (NEGATIVE) Ur Propoxyphene Screen Negative (NEGATIVE) Ur Barbiturates Screen Negative (NEGATIVE) Ur Tricyclics Screen Negative (NEGATIVE) Ur Phencyclidine Scrn Negative (NEGATIVE) Ur Amphetamine Screen Negative (NEGATIVE) U Methamphetamines Scrn Negative (NEGATIVE) Urine MDMA Screen Negative (NEGATIVE) U Benzodiazepines Scrn Negative (NEGATIVE) U Cocaine Metab Screen Negative (NEGATIVE) U Marijuana (THC) Screen Negative (NEGATIVE) Ethyl Alcohol mg/dL Medications Discontinued Medications Generic Name Dose Route Start Last Admin Trade Name Freq PRN Reason Stop Dose Admin Famotidine 20 mg 12/25/18 10:07 12/25/18 10:34 Pepcid PO 12/25/18 10:08 20 mg ONETIME ONE Administration Sodium Chloride 1,000 mls @ 999 mls/hr 12/25/18 10:45 12/25/18 11:24 Normal Saline IV 999 mls/hr ASDIRECTED EMMA Administration Sodium Chloride 1,000 mls @ 999 mls/hr 12/25/18 11:30 Normal Saline IV ASDIRECTED EMMA Lorazepam 1 mg 12/25/18 12:16 12/25/18 13:19 Ativan IVPUSH 12/25/18 12:17 Not Given ONETIME ONE Ondansetron HCl 4 mg 12/25/18 10:07 12/25/18 10:34 Zofran Odt PO 12/25/18 10:08 4 mg ONETIME ONE Administration Medical Clearance: 12/25/18 11:20 pt came to the [facility] to be cleared for [facility]. She was found to have markedly elevated liver enzymes. Her amylase is very significantly elevated. 12/27/18 18:58 pt had a US of the GB which showed A large stone in the GB neck . Pt did leave before she could be informed. Departure - Departure Time of Disposition: 13:20 Disposition: Admitted As Inpatient 66 Condition: Fair Clinical Impression: Pancreatitis, Elevated liver enzymes - Discharge Information Referrals: PCP,None [Primary Care Provider] - Forms: ED Department Discharge Care Plan Goals: admit to Dr Amaya.
[2018-12-25] MEDS ORDERED: Famotidine 20 MG Tab PO ONE (10:07)
[2018-12-25] MEDS ORDERED: Ondansetron 4 MG Tab.DIS PO ONE (10:07)
[2018-12-25] MEDS ORDERED: Sodium Chloride 0.9% 1,000 ML IV SCH ×2 (10:45→11:30)
[2018-12-25] MEDS ORDERED: LORazepam 2 MG/ML SDV IVPUSH ONE (12:16)
--- NOTE | 2018-12-25 14:23 | CRLUS ---
INDICATION: Elevated LFTs, pancreatitis TECHNIQUE: Ultrasound abdomen limited. Sonographic images of the right upper quadrant were obtained using laboy-scale and color Doppler images. COMPARISON: None FINDINGS: Liver: Normal in size diffuse fatty infiltration. No masses. No intrahepatic biliary dilatation. Gallbladder: Solitary gallstone in the gallbladder neck. Normal wall thickness. No pericholecystic fluid. Common bile duct: 4 mm. Pancreas: Well visualized. Right kidney: 0.8 cm. Normal echotexture and cortex. No masses, stones, or hydronephrosis. Vasculature: Proximal IVC is normal. IMPRESSION: Solitary gallstone in the gallbladder neck in an otherwise normal appearing gallbladder. Normal common bile duct. Fatty infiltration of the liver. Dictated by Gustavo Collier MD @ 12/25/2018 2:21:58 PM Dictated by: Gustavo Collier MD @ 12/25/2018 14:22:05 (Electronically Signed)
== END 2018-12-25 12:30 | disposition critical access hospital (66) ==
LOC: JP.ED 09:31
DX: K85.90 Acute pancreatitis without necrosis or infection, unspecified (principal); R74.8 Abnormal levels of other serum enzymes; Z88.2 Allergy status to sulfonamides; Z88.8 Allergy status to other drugs, medicaments and biological substances
CPT/HCPCS: 36415; 76705; 80053; 80305; 80320; 81001; 83690; 85025; 96360; 99284; A9270; J7030; G0480

== ENCOUNTER 2019-02-01 15:42 | Inpatient (IN) | payer MEDICAID ==
--- NOTE | 2019-02-01 16:04 | EDM.PDOC ---
<Pierce Atkins G - Last Filed: 02/01/19 18:11> ED HPI GENERAL MEDICAL PROBLEM - General Chief Complaint: Abdominal Pain Stated Complaint: ABD PAIN Time Seen by Provider: 02/01/19 15:55 Source of Information: Reports: Patient, EMS, Old Records History Limitations: Reports: No Limitations - History of Present Illness INITIAL COMMENTS - FREE TEXT/NARRATIVE: 43 yo female was here about 5 weeks ago and left AMA after a visit for pancreatitis, ETOH abuse and a gallstone in her common duct. She has continued to drink heavily since discharge. She notes that she started turning yellow about a week ago. Today she called EMS for transport here due to nausea and vomiting. Last drank ETOH earlier today. Notes that she has been bruising easily lately. Onset: Gradual Onset Date: 01/25/19 Duration: Week(s): (1), Getting Worse Location: Reports: Abdomen (nausea/vomiting), Generalized (jaundice) Quality: Reports: Other (no current pain) Severity: Moderate Improves with: Reports: None Worsens with: Reports: Other (time) Context: Reports: Other (See HPI) Associated Symptoms: Reports: Nausea/Vomiting, Other (jaundice). 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 (see below) (Zofran per EMS) Abdomen Pain Score (Numeric/FACES): 5 - Related Data Allergies Allergy/AdvReac Type Severity Reaction Status Date / Time sertraline HCl [From Zoloft] Allergy Hives Verified 02/01/19 15:53 Sulfa (Sulfonamide Allergy Hives Verified 02/01/19 15:53 Antibiotics) Home Meds: Home Meds NK [No Known Home Meds] 03/04/17 [History] Past Medical History HEENT History: Reports: Impaired Vision DOCUMENTATION ANALYST History: Reports: Ectopic , Other (See Below) Other DOCUMENTATION ANALYST History: IUD Neurological History: Reports: Concussion Psychiatric History: Reports: Addiction, Other (See Below) Other Psychiatric History: ETOH Hematologic History: Reports: Anemia Dermatologic History: Reports: Other (See Below) Other Dermatologic History: dry skin - Infectious Disease History Infectious Disease History: Reports: Chicken Pox, Hepatitis A Social & Family History - Tobacco Use Smoking Status *Q: Never Smoker - Caffeine Use Caffeine Use: Reports: None - Alcohol Use Days Per Week of Alcohol Use: 7 Number of Drinks Per Day: 10 Total Drinks Per Week: 70 - Recreational Drug Use Recreational Drug Use: No - Living Situation & Occupation Living situation: Reports: with Family (lives with her Family) Occupation: Unemployed ED ROS GENERAL - Review of Systems Review Of Systems: See Below Constitutional: Reports: Malaise HEENT: Reports: No Symptoms Respiratory: Reports: No Symptoms Cardiovascular: Reports: No Symptoms Endocrine: Reports: No Symptoms GI/Abdominal: Reports: Nausea, Vomiting. Denies: Abdominal Pain, Anorexia, Black Stool, Bloody Stool, Constipation, Diarrhea, Distension, Flatus, Hematemesis, Melena : Reports: No Symptoms Musculoskeletal: Reports: No Symptoms Skin: Reports: Jaundice, Bruising Neurological: Reports: No Symptoms ED EXAM, GI/ABD - Physical Exam Exam: See Below Exam Limited By: No Limitations General Appearance: Alert, WD/WN, No Apparent Distress Ears: Normal External Exam, Normal Canal, Hearing Grossly Normal, Normal TMs Nose: Normal Inspection, No Blood Throat/Mouth: Normal Inspection, Normal Lips, Normal Oropharynx, Normal Voice, No Airway Compromise Head: Atraumatic, Normocephalic Neck: Normal Inspection Respiratory/Chest: No Respiratory Distress, Lungs Clear, Normal Breath Sounds, No Accessory Muscle Use Cardiovascular: Regular Rate, Rhythm, No Edema GI/Abdominal Exam: Normal Bowel Sounds, Soft, No Distention, Tender (RUQ and LUQ 's). No: Non-Tender, Distended, Guarding, Rigid, Rebound, Hernia Back Exam: Normal Inspection. No: CVA Tenderness (R), CVA Tenderness (L) Extremities: Normal Inspection, Normal Range of Motion, Non-Tender, No Pedal Edema Neurological: Alert, Oriented, CN II-XII Intact, Normal Cognition, No Motor/ Sensory Deficits Psychiatric: Normal Affect, Normal Mood Skin Exam: Warm, Dry, Intact, No Rash, Ecchymosis, Jaundice Course - Vital Signs Last Recorded V/S: Last Vital Signs Temp 98.4 F 02/01/19 15:52 Pulse 83 02/01/19 17:43 Resp 16 02/01/19 15:52 BP 106/70 02/01/19 17:43 Pulse Ox 96 02/01/19 15:52 - Orders/Labs/Meds Orders: Active Orders 24 hr Category Date Time Status CULTURE URINE [RM] Stat Lab 02/01/19 16:47 Received Magnesium Sulfate/Water [Magnesium Sulfate in Water Med 02/01/19 17:56 Active Premix] 2 gm Premix Bag 1 bag IV ONETIME NS + KCl 20mEq/L [Normal Saline with 20 mEq KCl] 1,000 Med 02/01/19 16:45 Active ml IV ASDIRECTED Medication Orders Potassium Chloride/Sodium Chloride (Normal Saline With 20 Meq Kcl) 1,000 mls @ 500 mls/hr IV ASDIRECTED EMMA Last Admin: 02/01/19 17:01 Dose: 500 mls/hr Magnesium Sulfate 2 gm/ Premix 50 mls @ 12.5 mls/hr IV ONETIME ONE Stop: 02/01/19 21:55 Last Admin: 02/01/19 18:32 Dose: 12.5 mls/hr Labs: Laboratory Tests 02/01/19 02/01/19 02/01/19 Range/Units 15:48 15:49 16:05 WBC 5.3 (4.5-11.0) K/uL RBC 3.45 (3.30-5.50) M/uL Hgb 11.6 L (12.0-15.0) g/dL Hct 35.1 L (36.0-48.0) % MCV 102 H (80-98) fL MCH 34 H (27-31) pg MCHC 33 (32-36) % Plt Count 134 L (150-400) K/uL PT (9.5-12.0) sec INR (0.80-1.20) Sodium (140-148) mmol/L Potassium (3.6-5.2) mmol/L Chloride (100-108) mmol/L Carbon Dioxide (21-32) mmol/L Anion Gap (5.0-14.0) mmol/L BUN (7-18) mg/dL Creatinine (0.6-1.0) mg/dL Est Cr Clr Drug Dosing mL/min Estimated GFR (MDRD) (>60) Glucose (74-106) mg/dL Calcium (8.5-10.1) mg/dL Magnesium (1.8-2.4) mg/dL Total Bilirubin (0.2-1.0) mg/dL AST (15-37) U/L ALT (12-78) U/L Alkaline Phosphatase (46-116) U/L Total Protein (6.4-8.2) g/dL Albumin (3.4-5.0) g/dL Globulin (2.3-3.5) g/dL Albumin/Globulin Ratio (1.2-2.2) Lipase (73-393) U/L Urine Color Other A (YELLOW) Urine Appearance Cloudy A (CLEAR) Urine pH 6.0 (5.0-8.0) Ur Specific [place] 1.025 (1.008-1.030) Urine Protein >=300 H (NEGATIVE) mg/dL Urine Glucose (UA) 250 H (NEGATIVE) mg/dL Urine Ketones 40 H (NEGATIVE) mg/dL Urine Occult Blood Large H (NEGATIVE) Urine Nitrite Negative (NEGATIVE) Urine Bilirubin Large H (NEGATIVE) Urine Urobilinogen 2.0 H (0.2-1.0) EU/dL Ur Leukocyte Esterase Large H (NEGATIVE) Urine RBC 10-20 H (0-5) Urine WBC 30-40 H (0-5) Ur Epithelial Cells Many Amorphous Sediment Not seen Urine Bacteria Moderate Urine Mucus Not seen Urine Opiates Screen Negative (NEGATIVE) Ur Oxycodone Screen Negative (NEGATIVE) Urine Methadone Screen Negative (NEGATIVE) Ur Propoxyphene Screen Negative (NEGATIVE) Ur Barbiturates Screen Negative (NEGATIVE) Ur Tricyclics Screen Negative (NEGATIVE) Ur Phencyclidine Scrn Negative (NEGATIVE) Ur Amphetamine Screen Negative (NEGATIVE) U Methamphetamines Scrn Negative (NEGATIVE) Urine MDMA Screen Negative (NEGATIVE) U Benzodiazepines Scrn Negative (NEGATIVE) U Cocaine Metab Screen Negative (NEGATIVE) U Marijuana (THC) Screen Negative (NEGATIVE) Ethyl Alcohol mg/dL 02/01/19 02/01/19 02/01/19 Range/Units 16:05 16:05 16:05 WBC (4.5-11.0) K/uL RBC (3.30-5.50) M/uL Hgb (12.0-15.0) g/dL Hct (36.0-48.0) % MCV (80-98) fL MCH (27-31) pg MCHC (32-36) % Plt Count (150-400) K/uL PT (9.5-12.0) sec INR (0.80-1.20) Sodium 129 L (140-148) mmol/L Potassium 2.4 L* (3.6-5.2) mmol/L Chloride 87 L (100-108) mmol/L Carbon Dioxide 27 (21-32) mmol/L Anion Gap 17.4 H (5.0-14.0) mmol/L BUN 9 (7-18) mg/dL Creatinine 0.6 (0.6-1.0) mg/dL Est Cr Clr Drug Dosing 104.40 mL/min Estimated GFR (MDRD) > 60 (>60) Glucose 87 (74-106) mg/dL Calcium 8.2 L (8.5-10.1) mg/dL Magnesium (1.8-2.4) mg/dL Total Bilirubin 17.0 H D (0.2-1.0) mg/dL AST 320 H (15-37) U/L ALT 94 H (12-78) U/L Alkaline Phosphatase 352 H D (46-116) U/L Total Protein 6.8 (6.4-8.2) g/dL Albumin 1.9 L (3.4-5.0) g/dL Globulin 4.9 H (2.3-3.5) g/dL Albumin/Globulin Ratio 0.4 L (1.2-2.2) Lipase 811 H (73-393) U/L Urine Color (YELLOW) Urine Appearance (CLEAR) Urine pH (5.0-8.0) Ur Specific [place] (1.008-1.030) Urine Protein (NEGATIVE) mg/dL Urine Glucose (UA) (NEGATIVE) mg/dL Urine Ketones (NEGATIVE) mg/dL Urine Occult Blood (NEGATIVE) Urine Nitrite (NEGATIVE) Urine Bilirubin (NEGATIVE) Urine Urobilinogen (0.2-1.0) EU/dL Ur Leukocyte Esterase (NEGATIVE) Urine RBC (0-5) Urine WBC (0-5) Ur Epithelial Cells Amorphous Sediment Urine Bacteria Urine Mucus Urine Opiates Screen (NEGATIVE) Ur Oxycodone Screen (NEGATIVE) Urine Methadone Screen (NEGATIVE) Ur Propoxyphene Screen (NEGATIVE) Ur Barbiturates Screen (NEGATIVE) Ur Tricyclics Screen (NEGATIVE) Ur Phencyclidine Scrn (NEGATIVE) Ur Amphetamine Screen (NEGATIVE) U Methamphetamines Scrn (NEGATIVE) Urine MDMA Screen (NEGATIVE) U Benzodiazepines Scrn (NEGATIVE) U Cocaine Metab Screen (NEGATIVE) U Marijuana (THC) Screen (NEGATIVE) Ethyl Alcohol 88 mg/dL 02/01/19 02/01/19 Range/Units 17:41 17:48 WBC (4.5-11.0) K/uL RBC (3.30-5.50) M/uL Hgb (12.0-15.0) g/dL Hct (36.0-48.0) % MCV (80-98) fL MCH (27-31) pg MCHC (32-36) % Plt Count (150-400) K/uL PT 13.0 H (9.5-12.0) sec INR 1.22 H (0.80-1.20) Sodium (140-148) mmol/L Potassium (3.6-5.2) mmol/L Chloride (100-108) mmol/L Carbon Dioxide (21-32) mmol/L Anion Gap (5.0-14.0) mmol/L BUN (7-18) mg/dL Creatinine (0.6-1.0) mg/dL Est Cr Clr Drug Dosing mL/min Estimated GFR (MDRD) (>60) Glucose (74-106) mg/dL Calcium (8.5-10.1) mg/dL Magnesium 1.2 L (1.8-2.4) mg/dL Total Bilirubin (0.2-1.0) mg/dL AST (15-37) U/L ALT (12-78) U/L Alkaline Phosphatase (46-116) U/L Total Protein (6.4-8.2) g/dL Albumin (3.4-5.0) g/dL Globulin (2.3-3.5) g/dL Albumin/Globulin Ratio (1.2-2.2) Lipase (73-393) U/L Urine Color (YELLOW) Urine Appearance (CLEAR) Urine pH (5.0-8.0) Ur Specific [place] (1.008-1.030) Urine Protein (NEGATIVE) mg/dL Urine Glucose (UA) (NEGATIVE) mg/dL Urine Ketones (NEGATIVE) mg/dL Urine Occult Blood (NEGATIVE) Urine Nitrite (NEGATIVE) Urine Bilirubin (NEGATIVE) Urine Urobilinogen (0.2-1.0) EU/dL Ur Leukocyte Esterase (NEGATIVE) Urine RBC (0-5) Urine WBC (0-5) Ur Epithelial Cells Amorphous Sediment Urine Bacteria Urine Mucus Urine Opiates Screen (NEGATIVE) Ur Oxycodone Screen (NEGATIVE) Urine Methadone Screen (NEGATIVE) Ur Propoxyphene Screen (NEGATIVE) Ur Barbiturates Screen (NEGATIVE) Ur Tricyclics Screen (NEGATIVE) Ur Phencyclidine Scrn (NEGATIVE) Ur Amphetamine Screen (NEGATIVE) U Methamphetamines Scrn (NEGATIVE) Urine MDMA Screen (NEGATIVE) U Benzodiazepines Scrn (NEGATIVE) U Cocaine Metab Screen (NEGATIVE) U Marijuana (THC) Screen (NEGATIVE) Ethyl Alcohol mg/dL Meds: Medications Generic Name Dose Route Start Last Admin Trade Name Freq PRN Reason Stop Dose Admin Potassium Chloride/Sodium Chloride 1,000 mls @ 500 mls/hr 02/01/19 16:45 17:01 Normal Saline With 20 Meq Kcl IV 500 mls/hr ASDIRECTED EMMA Administration Magnesium Sulfate 2 gm/ Premix 50 mls @ 12.5 mls/hr 02/01/19 17:56 02/01/19 18:32 IV 02/01/19 21:55 12.5 mls/hr ONETIME ONE Administration Discontinued Medications Generic Name Dose Route Start Last Admin Trade Name Freq PRN Reason Stop Dose Admin Nitrofurantoin Macrocrystals 100 mg 02/01/19 17:40 Macrobid PO 02/01/19 17:41 ONETIME ONE Ondansetron HCl 4 mg 02/01/19 18:27 02/01/19 18:42 Zofran IVPUSH 02/01/19 18:28 4 mg ONETIME ONE Administration Potassium Chloride 40 meq 02/01/19 17:41 Potassium Chloride PO 02/01/19 17:42 ONETIME ONE - Radiology Interpretation Free Text/Narrative:: Gallbladder US-no common duct stone seen. Departure - Departure Disposition: Admitted As Inpatient 66 Condition: Fair Clinical Impression: Alcohol abuse, Elevated liver enzymes, Hypokalemia, Hypomagnesemia Alcohol intoxication Qualifiers: Complication of substance-induced condition: uncomplicated Qualified Code(s): F10.920 - Alcohol use, unspecified with intoxication, uncomplicated Pancreatitis Qualifiers: Chronicity: acute Pancreatitis type: alcohol induced Acute pancreatitis complication: unspecified Qualified Code(s): K85.20 - Alcohol induced acute pancreatitis without necrosis or infection - Discharge Information *PRESCRIPTION DRUG MONITORING PROGRAM REVIEWED*: No *COPY OF PRESCRIPTION DRUG MONITORING REPORT IN PATIENT SAYDA: No Referrals: PCP,None [Primary Care Provider] - Forms: ED Department Discharge <Jorge Gentile - Last Filed: 02/01/19 18:46> Departure - Departure Time of Disposition: 18:46
[2019-02-01] MEDS ORDERED: NS + KCl 20mEq/L 1,000 ML IV SCH (16:45)
[2019-02-01] MEDS ORDERED: Nitrofurantoin Monohydrate/Macrocrystalline 100 MG Cap PO ONE (17:40)
[2019-02-01] MEDS ORDERED: Potassium Chloride 10 MEQ Cap.ER PO ONE (17:41)
[2019-02-01] MEDS ORDERED: Magnesium Sulfate/Water 2 GM in Premix Bag 1 BAG IV ONE (17:56)
--- NOTE | 2019-02-01 18:13 | CRLUS ---
INDICATION: Jaundice, common duct stone 5 weeks prior. TECHNIQUE: Ultrasound abdomen limited. Sonographic images of the right upper quadrant were obtained using laboy-scale and color Doppler images. COMPARISON: Ultrasound 12/25/2018 FINDINGS: Liver: Diffusely increased in echogenicity without focal lesion. Gallbladder: Contracted gallbladder with cholelithiasis. Borderline gallbladder wall thickness. No pericholecystic fluid. Negative sonographic Roman`s sign. Common bile duct: 6 mm. Pancreas: Partially obscured by bowel gas without gross abnormality. Right kidney: Normal in size. Normal echotexture and cortex. No masses, stones, or hydronephrosis. Vasculature: Proximal abdominal aorta and IVC are normal. IMPRESSION: 1. Contracted gallbladder with cholelithiasis without sonographic evidence of cholecystitis. 2. Common duct within normal limits of 6 millimeters. No common duct stone seen although much of the common duct is obscured by bowel gas. 3. Moderate fatty infiltration of the liver. Dictated by Brandon Dubon MD @ Feb 01 2019 6:07PM Signed by Dr. Brandon Dubon @ Feb 01 2019 6:11PM
[2019-02-01] MEDS ORDERED: Ondansetron 4 MG/2 ML SDV IVPUSH ONE (18:27)
[2019-02-01] MEDS ORDERED: Potassium Chloride 20 MEQ in Premix Bag 1 BAG IV ONE (18:51)
[2019-02-01] MEDS ORDERED: LORazepam 2 MG/ML SDV IVPUSH ONE (19:14)
[2019-02-01] MEDS ORDERED: Pantoprazole 40 MG Vial IV SCH (20:26)
[2019-02-01] MEDS ORDERED: cefTRIAXone 1 GM in Sodium Chloride 0.9% 50 ML IV ONE (20:26)
--- NOTE | 2019-02-01 20:30 | PCM.HP.2 ---
H&P History of Present Illness - General Date of Service: 02/01/19 Admit Problem/Dx: Admission Diagnosis/Problem Admission Diagnosis/Problem Alcoholic hepatitis with ascites Source of Information: Patient, Provider History Limitations: Reports: No Limitations - History of Present Illness Initial Comments - Free Text/Narative: chief complaint: abdominal pain with nausea and vomiting. This is a 43 year old female arrives via ambulance to ER for evaluation. Ms.Rosalinda Ivett stockton was seen in the ER on January 24 for pancreatitis and drinking but left against medical advice. She reports about one week ago turned yellow, for the past four days has had painful urination, nausea, vomiting - with last meal 3-4 days ago, abdominal pain, stools daily green -denies black or tarry stools, urine "dark weird" color, bones and muscles aches, headache. Reports has been drinking one pint or more of Vodka daily for the past 3 years. last drink at 12:30pm today. In the past has had alcohol withdrawal with seizures. denies any drugs use, reports had problems with Meth in the past. Does not smoke tobacco or other products. Onset of Symptoms: Reports: Gradual Symptom Onset Date: 01/26/19 Duration of Symptoms: Reports: Week(s):, Getting Worse Location: Reports: Generalized Quality: Reports: Same as Previous Episode (reports had pancreatitis in the past ) Improves with: Reports: None Worsens with: Reports: Eating Context: Reports: Other (chronic alcohol use with last drink at 1230 pm today.) Associated Symptoms: Reports: Headaches, Loss of Appetite, Malaise, Nausea/ Vomiting, Weakness Abdomen Pain Score (Numeric/FACES): 5 - Related Data Allergies/Adverse Reactions: Allergies Allergy/AdvReac Type Severity Reaction Status Date / Time sertraline HCl [From Zoloft] Allergy Hives Verified 02/01/19 15:53 Sulfa (Sulfonamide Allergy Hives Verified 02/01/19 15:53 Antibiotics) Home Medications: Home Meds NK [No Known Home Meds] 03/04/17 [History] Past Medical History HEENT History: Reports: Impaired Vision [employer] [employer] History: Reports: Ectopic , Other (See Below) Other OB/BYN History: IUD Neurological History: Reports: Concussion Psychiatric History: Reports: Addiction, Other (See Below) Other Psychiatric History: ETOH Hematologic History: Reports: Anemia Dermatologic History: Reports: Other (See Below) Other Dermatologic History: dry skin - Infectious Disease History Infectious Disease History: Reports: Chicken Pox, Hepatitis A Social & Family History - Tobacco Use Smoking Status *Q: Never Smoker - Caffeine Use Caffeine Use: Reports: None - Alcohol Use Days Per Week of Alcohol Use: 7 Number of Drinks Per Day: 10 Total Drinks Per Week: 70 - Recreational Drug Use Recreational Drug Use: No - Living Situation & Occupation Living situation: Reports: with Family (lives with her Family) Occupation: Unemployed H&P Review of Systems - Review of Systems: Review Of Systems: See Below General: Reports: Weakness, Fatigue, Decreased Appetite, Weight Loss HEENT: Reports: Eye Pain (jaundice), Glasses, Headaches, Other (full denture) Pulmonary: Reports: No Symptoms, Pleuritic Chest Pain Cardiovascular: Reports: No Symptoms Gastrointestinal: Reports: Abdominal Pain, Anorexia, Decreased Appetite (last meal 3 to 4 days ago), Nausea (N&V x 3 to 4 days), Vomiting (x3 to 4 days) Genitourinary: Reports: Dysuria, Pain (x4 days) Musculoskeletal: Reports: Muscle Pain (bone and muscle pain), Muscle Stiffness Skin: Reports: Jaundice, Dryness, Bruising (abdominal from fall at home), Change in Color (jaundice x one week) Psychiatric: Reports: Anxiety Neurological: Reports: Headache, Weakness Hematologic/Lymphatic: Reports: Easy Bleeding, Easy Bruising Immunologic: Reports: No Symptoms Exam - Exam Exam: See Below - Vital Signs Vital Signs: Last Vital Signs Temp 36.9 C 02/01/19 15:52 Pulse 83 02/01/19 17:43 Resp 16 02/01/19 15:52 BP 106/70 02/01/19 17:43 Pulse Ox 96 02/01/19 15:52 Weight: 68.039 kg - Exam General: Cooperative, Moderate Distress (active vomiting - dry heaves) HEENT: PERRLA, EOMI, Hearing Intact, Nares Patent, Normal Nasal Septum, TMs Clear, Scleral Icterus Neck: Supple, Trachea Midline Lungs: Clear to Auscultation, Normal Respiratory Effort Cardiovascular: Regular Rate, Regular Rhythm, Normal S1, Normal S2 GI/Abdominal Exam: Distended, Tender (right upper quadrant extends to umbilicus) , Abnormal Bowel Sounds (hypoactive) (Female) Exam: Normal External Exam Rectal (Female) Exam: Deferred Back Exam: Normal Inspection, Full Range of Motion, Other (generalized back pain ) Extremities: Normal Inspection, Normal Range of Motion, Non-Tender, No Pedal Edema, Normal Capillary Refill Peripheral Pulses: 2+: Radial (L), Radial (R), Dorsalis Pedis (L), Dorsalis Pedis (R) Skin: Warm, Dry (very dry), Intact, Other (moderate jaundice noted to skin) Neurological: Reflexes Equal Bilateral, Strength Equal Bilateral Neuro Extensive - Mental Status: Alert, Oriented x3, Memory Intact. No: Normal Mood/Affect (flat affect) Psychiatric: Anxious, Other (flat affect) - Patient Data Lab Results Last 24 hrs: Laboratory Results - last 24 hr 02/01/19 02/01/19 02/01/19 Range/Units 15:48 15:49 16:05 WBC 5.3 (4.5-11.0) K/uL RBC 3.45 (3.30-5.50) M/uL Hgb 11.6 L (12.0-15.0) g/dL Hct 35.1 L (36.0-48.0) % MCV 102 H (80-98) fL MCH 34 H (27-31) pg MCHC 33 (32-36) % Plt Count 134 L (150-400) K/uL PT (9.5-12.0) sec INR (0.80-1.20) Sodium (140-148) mmol/L Potassium (3.6-5.2) mmol/L Chloride (100-108) mmol/L Carbon Dioxide (21-32) mmol/L Anion Gap (5.0-14.0) mmol/L BUN (7-18) mg/dL Creatinine (0.6-1.0) mg/dL Est Cr Clr Drug Dosing mL/min Estimated GFR (MDRD) (>60) Glucose (74-106) mg/dL Calcium (8.5-10.1) mg/dL Magnesium (1.8-2.4) mg/dL Total Bilirubin (0.2-1.0) mg/dL AST (15-37) U/L ALT (12-78) U/L Alkaline Phosphatase (46-116) U/L Total Protein (6.4-8.2) g/dL Albumin (3.4-5.0) g/dL Globulin (2.3-3.5) g/dL Albumin/Globulin Ratio (1.2-2.2) Lipase (73-393) U/L Urine Color Other A (YELLOW) Urine Appearance Cloudy A (CLEAR) Urine pH 6.0 (5.0-8.0) Ur Specific Yeoman 1.025 (1.008-1.030) Urine Protein >=300 H (NEGATIVE) mg/dL Urine Glucose (UA) 250 H (NEGATIVE) mg/dL Urine Ketones 40 H (NEGATIVE) mg/dL Urine Occult Blood Large H (NEGATIVE) Urine Nitrite Negative (NEGATIVE) Urine Bilirubin Large H (NEGATIVE) Urine Urobilinogen 2.0 H (0.2-1.0) EU/dL Ur Leukocyte Esterase Large H (NEGATIVE) Urine RBC 10-20 H (0-5) Urine WBC 30-40 H (0-5) Ur Epithelial Cells Many Amorphous Sediment Not seen Urine Bacteria Moderate Urine Mucus Not seen Urine Opiates Screen Negative (NEGATIVE) Ur Oxycodone Screen Negative (NEGATIVE) Urine Methadone Screen Negative (NEGATIVE) Ur Propoxyphene Screen Negative (NEGATIVE) Ur Barbiturates Screen Negative (NEGATIVE) Ur Tricyclics Screen Negative (NEGATIVE) Ur Phencyclidine Scrn Negative (NEGATIVE) Ur Amphetamine Screen Negative (NEGATIVE) U Methamphetamines Scrn Negative (NEGATIVE) Urine MDMA Screen Negative (NEGATIVE) U Benzodiazepines Scrn Negative (NEGATIVE) U Cocaine Metab Screen Negative (NEGATIVE) U Marijuana (THC) Screen Negative (NEGATIVE) Ethyl Alcohol mg/dL 02/01/19 02/01/19 02/01/19 Range/Units 16:05 16:05 16:05 WBC (4.5-11.0) K/uL RBC (3.30-5.50) M/uL Hgb (12.0-15.0) g/dL Hct (36.0-48.0) % MCV (80-98) fL MCH (27-31) pg MCHC (32-36) % Plt Count (150-400) K/uL PT (9.5-12.0) sec INR (0.80-1.20) Sodium 129 L (140-148) mmol/L Potassium 2.4 L* (3.6-5.2) mmol/L Chloride 87 L (100-108) mmol/L Carbon Dioxide 27 (21-32) mmol/L Anion Gap 17.4 H (5.0-14.0) mmol/L BUN 9 (7-18) mg/dL Creatinine 0.6 (0.6-1.0) mg/dL Est Cr Clr Drug Dosing 104.40 mL/min Estimated GFR (MDRD) > 60 (>60) Glucose 87 (74-106) mg/dL Calcium 8.2 L (8.5-10.1) mg/dL Magnesium (1.8-2.4) mg/dL Total Bilirubin 17.0 H D (0.2-1.0) mg/dL AST 320 H (15-37) U/L ALT 94 H (12-78) U/L Alkaline Phosphatase 352 H D (46-116) U/L Total Protein 6.8 (6.4-8.2) g/dL Albumin 1.9 L (3.4-5.0) g/dL Globulin 4.9 H (2.3-3.5) g/dL Albumin/Globulin Ratio 0.4 L (1.2-2.2) Lipase 811 H (73-393) U/L Urine Color (YELLOW) Urine Appearance (CLEAR) Urine pH (5.0-8.0) Ur Specific Yeoman (1.008-1.030) Urine Protein (NEGATIVE) mg/dL Urine Glucose (UA) (NEGATIVE) mg/dL Urine Ketones (NEGATIVE) mg/dL Urine Occult Blood (NEGATIVE) Urine Nitrite (NEGATIVE) Urine Bilirubin (NEGATIVE) Urine Urobilinogen (0.2-1.0) EU/dL Ur Leukocyte Esterase (NEGATIVE) Urine RBC (0-5) Urine WBC (0-5) Ur Epithelial Cells Amorphous Sediment Urine Bacteria Urine Mucus Urine Opiates Screen (NEGATIVE) Ur Oxycodone Screen (NEGATIVE) Urine Methadone Screen (NEGATIVE) Ur Propoxyphene Screen (NEGATIVE) Ur Barbiturates Screen (NEGATIVE) Ur Tricyclics Screen (NEGATIVE) Ur Phencyclidine Scrn (NEGATIVE) Ur Amphetamine Screen (NEGATIVE) U Methamphetamines Scrn (NEGATIVE) Urine MDMA Screen (NEGATIVE) U Benzodiazepines Scrn (NEGATIVE) U Cocaine Metab Screen (NEGATIVE) U Marijuana (THC) Screen (NEGATIVE) Ethyl Alcohol 88 mg/dL 02/01/19 02/01/19 Range/Units 17:41 17:48 WBC (4.5-11.0) K/uL RBC (3.30-5.50) M/uL Hgb (12.0-15.0) g/dL Hct (36.0-48.0) % MCV (80-98) fL MCH (27-31) pg MCHC (32-36) % Plt Count (150-400) K/uL PT 13.0 H (9.5-12.0) sec INR 1.22 H (0.80-1.20) Sodium (140-148) mmol/L Potassium (3.6-5.2) mmol/L Chloride (100-108) mmol/L Carbon Dioxide (21-32) mmol/L Anion Gap (5.0-14.0) mmol/L BUN (7-18) mg/dL Creatinine (0.6-1.0) mg/dL Est Cr Clr Drug Dosing mL/min Estimated GFR (MDRD) (>60) Glucose (74-106) mg/dL Calcium (8.5-10.1) mg/dL Magnesium 1.2 L (1.8-2.4) mg/dL Total Bilirubin (0.2-1.0) mg/dL AST (15-37) U/L ALT (12-78) U/L Alkaline Phosphatase (46-116) U/L Total Protein (6.4-8.2) g/dL Albumin (3.4-5.0) g/dL Globulin (2.3-3.5) g/dL Albumin/Globulin Ratio (1.2-2.2) Lipase (73-393) U/L Urine Color (YELLOW) Urine Appearance (CLEAR) Urine pH (5.0-8.0) Ur Specific Yeoman (1.008-1.030) Urine Protein (NEGATIVE) mg/dL Urine Glucose (UA) (NEGATIVE) mg/dL Urine Ketones (NEGATIVE) mg/dL Urine Occult Blood (NEGATIVE) Urine Nitrite (NEGATIVE) Urine Bilirubin (NEGATIVE) Urine Urobilinogen (0.2-1.0) EU/dL Ur Leukocyte Esterase (NEGATIVE) Urine RBC (0-5) Urine WBC (0-5) Ur Epithelial Cells Amorphous Sediment Urine Bacteria Urine Mucus Urine Opiates Screen (NEGATIVE) Ur Oxycodone Screen (NEGATIVE) Urine Methadone Screen (NEGATIVE) Ur Propoxyphene Screen (NEGATIVE) Ur Barbiturates Screen (NEGATIVE) Ur Tricyclics Screen (NEGATIVE) Ur Phencyclidine Scrn (NEGATIVE) Ur Amphetamine Screen (NEGATIVE) U Methamphetamines Scrn (NEGATIVE) Urine MDMA Screen (NEGATIVE) U Benzodiazepines Scrn (NEGATIVE) U Cocaine Metab Screen (NEGATIVE) U Marijuana (THC) Screen (NEGATIVE) Ethyl Alcohol mg/dL Result Diagrams: 02/01/19 16:05 02/01/19 16:05 - Problem List (1) Alcoholic hepatitis with ascites SNOMED Code(s): 7254076731754566 ICD Code: K70.11 - ALCOHOLIC HEPATITIS WITH ASCITES Status: Acute Priority: High Current Visit: Yes (2) Alcohol abuse SNOMED Code(s): 12311239 ICD Code: F10.10 - ALCOHOL ABUSE, UNCOMPLICATED Status: Acute Priority: High Current Visit: Yes (3) Hypokalemia SNOMED Code(s): 36273119 ICD Code: E87.6 - HYPOKALEMIA Status: Acute Priority: High Current Visit: Yes (4) Hypomagnesemia SNOMED Code(s): 366540523 ICD Code: E83.42 - HYPOMAGNESEMIA Status: Acute Priority: High Current Visit: Yes (5) Pancreatitis SNOMED Code(s): 56954017 ICD Code: K85.90 - ACUTE PANCREATITIS WITHOUT NECROSIS OR INFECTION, UNSP Status: Acute Priority: High Current Visit: Yes Qualifiers: Chronicity: acute Pancreatitis type: alcohol induced Acute pancreatitis complication: unspecified Qualified Code(s): K85.20 - Alcohol induced acute pancreatitis without necrosis or infection (6) Urinary tract infection SNOMED Code(s): 22200720 ICD Code: N39.0 - URINARY TRACT INFECTION, SITE NOT SPECIFIED Status: Acute Priority: High Current Visit: Yes Qualifiers: Hematuria presence: with hematuria Problem List Initiated/Reviewed/Updated: Yes Orders Last 24hrs: Active Orders 24 hr Category Date Time Status Patient Status Manage Transfer [TRANSFER] Routine ADT 02/01/19 19:56 Active CULTURE URINE [RM] Stat Lab 02/01/19 16:47 Received CULTURE URINE [RM] Stat Lab 02/01/19 18:57 Received Magnesium Sulfate/Water [Magnesium Sulfate in Water Med 02/01/19 17:56 Active Premix] 2 gm Premix Bag 1 bag IV ONETIME NS + KCl 20mEq/L [Normal Saline with 20 mEq KCl] 1,000 Med 02/01/19 16:45 Active ml IV ASDIRECTED Potassium Chloride [KCL 20 MEQ in Water 100 ML] 20 meq Med 02/01/19 18:51 Active Premix Bag 1 bag IV ONETIME Potassium Chloride [KCL 20 MEQ in Water 100 ML] 20 meq Med 02/01/19 18:52 Active Premix Bag 1 bag IV ONETIME Resuscitation Status Routine Resus Stat 02/01/19 19:58 Ordered Medication Orders Potassium Chloride/Sodium Chloride (Normal Saline With 20 Meq Kcl) 1,000 mls @ 500 mls/hr IV ASDIRECTED EMMA Last Admin: 02/01/19 17:01 Dose: 500 mls/hr Magnesium Sulfate 2 gm/ Premix 50 mls @ 12.5 mls/hr IV ONETIME ONE Stop: 02/01/19 21:55 Last Admin: 02/01/19 18:32 Dose: 12.5 mls/hr Potassium Chloride 20 meq/ (Premix) 100 mls @ 50 mls/hr IV ONETIME ONE Stop: 02/01/19 20:50 Potassium Chloride 20 meq/ (Premix) 100 mls @ 50 mls/hr IV ONETIME ONE Stop: 02/01/19 20:51 Assessment/Plan Comment:: ASSESSMENT AND PLAN This is a 43 year old female arrives via ambulance to ER for evaluation. Ms.Rosalinda Root reports was seen in the ER on January 24 for pancreatitis and drinking but left against medical advice. She reports about one week ago turned yellow, for the past four days has had painful urination, nausea, vomiting - with last meal 3-4 days ago, abdominal pain, stools daily green -denies black or tarry stools, urine "dark weird" color, bones and muscles aches, headache. Reports has been drinking one pint or more of Vodka daily for the past 3 years. last drink at 12:30pm today. In the past has had alcohol withdrawal with seizures. denies any drugs use, reports had problems with Meth in the past. Does not smoke tobacco or other products. ER labs: CBC WBC 5.3, hgb 11.6, hct 35.1, plt 134 Chemistry: Na 129, K+ 2.4, Cl 87, Anion gap 17.4, BUN 9, Cr. 0.6, glucose 87, ca ++ 8.2 Liver function: ammonia pending , total bili 17.0, ast 320, alt 94, alk phos 352 , total protein 6.8, albumin 1.9, globulin 1.9, albumin/globulin ration 0.4, Lipase 811 Urine: cloudy jef, WBC 30-40, rbc 10-20, negative nitrates, + ketones, + protein, large leukocytes, urobilinogen 2.0,urine glucose 250H, urine test pending urine drug screen negative for drugs of abuse, alcohol level 88 plan to admit to [facility] for Alcoholic Hepatitis with ascites and jaundice., Pancreatitis, Hypokalemia, Hypomagnesia, Urinary Tract Infection, Chronic alcohol dependence. Alcoholic Hepatitis with ascites and jaundice; discussed with Ms. Root how serious this is and if she continues to drink it will be fatal. Discussed hospitalization course with plan to discharge to Inpatient Treatment Program or Intensive Outpatient Treatment Program. She is agrees with plan of care at this time. reports she just wanted to go to Detox because she felt so sick. Express concerns about her current health and wants to get better. -Maddrey Score 22 -IV fluids, one Banana Bag -CIWAA protocol -am labs CBC with diff, INR, PT, BMP, Magnesium, amylase, lipase Hypokalemia -IV fluids NS with Potassium 20 meq x 2 liters total, then change to IV Normal Saline at 125ml/hr -IV Potassium 40 meq one time -recheck Potassium in am Hypomagnesium -IV Magnesium Sulfate 2gram now -IV Banana bag at 0200 -recheck magnesium in am Pancreatitis - Lipase 811 -pain management -anti-nausea medication -Clear liquids -IV fluids -recheck labs in am Urinary Tract Infection -Rocephin 1 gram IV every 24 hours -IV fluids -I&O -urine culture pending Alcoholism -referral to Spiritual Care -referral to Case Management and Social Service for placement into Inpatient Treatment Program at time of discharge MAINTENANCE ISSUES -DVT prophylaxis; SCD -GI prophylaxis; IV Protonix 40 mg daily -Green catheter; not indicated -Nutrition; clear liquid diet -Nicotine dependence; not required -referral Bi Developer, Social Service, Spiritual CODE STATUS-FULL ADMISSION STATUS-patient will be admitted to inpatient status, expect at least a 2 night hospital stay for evaluation and management of problems as outlined above. At the time of this admission I do not reasonably expected evaluation and management of this problem will require more than a 96 hour hospital stay. DISPOSITION-anticipate discharge to Inpatient Treatment after the hospital stay. Primary Care Provider: Deisi Wilkins, [place], [place]. Hospitalist: Dr. King M.D. Prognosis good - Mortality Measure Prognosis:: Good
[2019-02-01] MEDS: Potassium Chloride 20 MEQ in Premix Bag 1 BAG IV ONE (21:42)
[2019-02-01] MEDS: NS + KCl 20mEq/L 1,000 ML IV SCH (21:51)
[2019-02-01] MEDS: LORazepam 2 MG/ML SDV IV SCH (23:06)
[2019-02-02] MEDS: Potassium Chloride 20 MEQ in Premix Bag 1 BAG IV ONE (01:25)
[2019-02-02] MEDS ORDERED: MVI, Adult with Vitamin K 10 ML, Thiamine 100 MG, Folic Acid 1 MG, Magnesium Sulfate 2 ... IV ONE ×5 (02:00)
[2019-02-02] MEDS: LORazepam 2 MG/ML SDV IV SCH ×9 (02:26→23:42)
[2019-02-02] MEDS: NS + KCl 20mEq/L 1,000 ML IV SCH ×2 (02:39→10:30)
[2019-02-02] MEDS ORDERED: Potassium Chloride 20 MEQ Tab.ER PO ONE (09:30)
[2019-02-02] MEDS: Gabapentin 400 MG Cap PO SCH ×3 (10:29→20:19)
[2019-02-02] MEDS: Potassium Chloride 20 MEQ, Lidocaine 1% 2 ML in Sodium Chloride 0.9% 100 ML IV SCH ×2 (10:29→12:40)
--- NOTE | 2019-02-02 10:50 | PCM.PN ---
- General Info Date of Service: 02/02/19 Subjective Update: Ms. Root has started to develop significant alcohol withdrawal and delirium. Heart rate has been elevated and she is been fairly lethargic. Bilirubin level has improved modestly from admission. As of her delirium she is unable to provide meaningful history concerning symptoms or review of systems. - Patient Data Vitals - Most Recent: Last Vital Signs Temp 100.9 F H 02/02/19 09:52 Pulse 107 H 02/02/19 09:52 Resp 19 02/02/19 09:52 BP 122/89 02/02/19 09:52 Pulse Ox 95 02/02/19 09:52 Weight - Most Recent: 150 lb I&O - Last 24 Hours: Intake & Output 02/01/19 02/02/19 02/02/19 22:59 06:59 14:59 Intake Total 200 2835 500 Output Total 300 Balance 200 2835 200 Lab Results Last 24 Hours: Laboratory Results - last 24 hr 02/01/19 02/01/19 02/01/19 Range/Units 15:48 15:49 16:05 WBC 5.3 (4.5-11.0) K/uL RBC 3.45 (3.30-5.50) M/uL Hgb 11.6 L (12.0-15.0) g/dL Hct 35.1 L (36.0-48.0) % MCV 102 H (80-98) fL MCH 34 H (27-31) pg MCHC 33 (32-36) % Plt Count 134 L (150-400) K/uL Neut % (Auto) (36-66) % Lymph % (Auto) (24-44) % Miller % (Auto) (2-6) % Eos % (Auto) (2-4) % Baso % (Auto) (0-1) % PT (9.5-12.0) sec INR (0.80-1.20) Sodium (140-148) mmol/L Potassium (3.6-5.2) mmol/L Chloride (100-108) mmol/L Carbon Dioxide (21-32) mmol/L Anion Gap (5.0-14.0) mmol/L BUN (7-18) mg/dL Creatinine (0.6-1.0) mg/dL Est Cr Clr Drug Dosing mL/min Estimated GFR (MDRD) (>60) Glucose (74-106) mg/dL Calcium (8.5-10.1) mg/dL Magnesium (1.8-2.4) mg/dL Total Bilirubin (0.2-1.0) mg/dL Direct Bilirubin (0.0-0.2) mg/dL Indirect Bilirubin AST (15-37) U/L ALT (12-78) U/L Alkaline Phosphatase (46-116) U/L Ammonia (11-32) mmol/L Total Protein (6.4-8.2) g/dL Albumin (3.4-5.0) g/dL Globulin (2.3-3.5) g/dL Albumin/Globulin Ratio (1.2-2.2) Amylase (25-115) U/L Lipase (73-393) U/L Urine Color Other A (YELLOW) Urine Appearance Cloudy A (CLEAR) Urine pH 6.0 (5.0-8.0) Ur Specific [place] 1.025 (1.008-1.030) Urine Protein >=300 H (NEGATIVE) mg/dL Urine Glucose (UA) 250 H (NEGATIVE) mg/dL Urine Ketones 40 H (NEGATIVE) mg/dL Urine Occult Blood Large H (NEGATIVE) Urine Nitrite Negative (NEGATIVE) Urine Bilirubin Large H (NEGATIVE) Urine Urobilinogen 2.0 H (0.2-1.0) EU/dL Ur Leukocyte Esterase Large H (NEGATIVE) Urine RBC 10-20 H (0-5) Urine WBC 30-40 H (0-5) Ur Epithelial Cells Many Amorphous Sediment Not seen Urine Bacteria Moderate Urine Mucus Not seen Urine Opiates Screen Negative (NEGATIVE) Ur Oxycodone Screen Negative (NEGATIVE) Urine Methadone Screen Negative (NEGATIVE) Ur Propoxyphene Screen Negative (NEGATIVE) Ur Barbiturates Screen Negative (NEGATIVE) Ur Tricyclics Screen Negative (NEGATIVE) Ur Phencyclidine Scrn Negative (NEGATIVE) Ur Amphetamine Screen Negative (NEGATIVE) U Methamphetamines Scrn Negative (NEGATIVE) Urine MDMA Screen Negative (NEGATIVE) U Benzodiazepines Scrn Negative (NEGATIVE) U Cocaine Metab Screen Negative (NEGATIVE) U Marijuana (THC) Screen Negative (NEGATIVE) Ethyl Alcohol mg/dL 02/01/19 02/01/19 02/01/19 Range/Units 16:05 16:05 16:05 WBC (4.5-11.0) K/uL RBC (3.30-5.50) M/uL Hgb (12.0-15.0) g/dL Hct (36.0-48.0) % MCV (80-98) fL MCH (27-31) pg MCHC (32-36) % Plt Count (150-400) K/uL Neut % (Auto) (36-66) % Lymph % (Auto) (24-44) % Miller % (Auto) (2-6) % Eos % (Auto) (2-4) % Baso % (Auto) (0-1) % PT (9.5-12.0) sec INR (0.80-1.20) Sodium 129 L (140-148) mmol/L Potassium 2.4 L* (3.6-5.2) mmol/L Chloride 87 L (100-108) mmol/L Carbon Dioxide 27 (21-32) mmol/L Anion Gap 17.4 H (5.0-14.0) mmol/L BUN 9 (7-18) mg/dL Creatinine 0.6 (0.6-1.0) mg/dL Est Cr Clr Drug Dosing 104.40 mL/min Estimated GFR (MDRD) > 60 (>60) Glucose 87 (74-106) mg/dL Calcium 8.2 L (8.5-10.1) mg/dL Magnesium (1.8-2.4) mg/dL Total Bilirubin 17.0 H D (0.2-1.0) mg/dL Direct Bilirubin (0.0-0.2) mg/dL Indirect Bilirubin AST 320 H (15-37) U/L ALT 94 H (12-78) U/L Alkaline Phosphatase 352 H D (46-116) U/L Ammonia (11-32) mmol/L Total Protein 6.8 (6.4-8.2) g/dL Albumin 1.9 L (3.4-5.0) g/dL Globulin 4.9 H (2.3-3.5) g/dL Albumin/Globulin Ratio 0.4 L (1.2-2.2) Amylase (25-115) U/L Lipase 811 H (73-393) U/L Urine Color (YELLOW) Urine Appearance (CLEAR) Urine pH (5.0-8.0) Ur Specific [place] (1.008-1.030) Urine Protein (NEGATIVE) mg/dL Urine Glucose (UA) (NEGATIVE) mg/dL Urine Ketones (NEGATIVE) mg/dL Urine Occult Blood (NEGATIVE) Urine Nitrite (NEGATIVE) Urine Bilirubin (NEGATIVE) Urine Urobilinogen (0.2-1.0) EU/dL Ur Leukocyte Esterase (NEGATIVE) Urine RBC (0-5) Urine WBC (0-5) Ur Epithelial Cells Amorphous Sediment Urine Bacteria Urine Mucus Urine Opiates Screen (NEGATIVE) Ur Oxycodone Screen (NEGATIVE) Urine Methadone Screen (NEGATIVE) Ur Propoxyphene Screen (NEGATIVE) Ur Barbiturates Screen (NEGATIVE) Ur Tricyclics Screen (NEGATIVE) Ur Phencyclidine Scrn (NEGATIVE) Ur Amphetamine Screen (NEGATIVE) U Methamphetamines Scrn (NEGATIVE) Urine MDMA Screen (NEGATIVE) U Benzodiazepines Scrn (NEGATIVE) U Cocaine Metab Screen (NEGATIVE) U Marijuana (THC) Screen (NEGATIVE) Ethyl Alcohol 88 mg/dL 02/01/19 02/01/19 02/01/19 Range/Units 17:41 17:48 21:10 WBC (4.5-11.0) K/uL RBC (3.30-5.50) M/uL Hgb (12.0-15.0) g/dL Hct (36.0-48.0) % MCV (80-98) fL MCH (27-31) pg MCHC (32-36) % Plt Count (150-400) K/uL Neut % (Auto) (36-66) % Lymph % (Auto) (24-44) % Miller % (Auto) (2-6) % Eos % (Auto) (2-4) % Baso % (Auto) (0-1) % PT 13.0 H (9.5-12.0) sec INR 1.22 H (0.80-1.20) Sodium (140-148) mmol/L Potassium (3.6-5.2) mmol/L Chloride (100-108) mmol/L Carbon Dioxide (21-32) mmol/L Anion Gap (5.0-14.0) mmol/L BUN (7-18) mg/dL Creatinine (0.6-1.0) mg/dL Est Cr Clr Drug Dosing mL/min Estimated GFR (MDRD) (>60) Glucose (74-106) mg/dL Calcium (8.5-10.1) mg/dL Magnesium 1.2 L (1.8-2.4) mg/dL Total Bilirubin (0.2-1.0) mg/dL Direct Bilirubin (0.0-0.2) mg/dL Indirect Bilirubin AST (15-37) U/L ALT (12-78) U/L Alkaline Phosphatase (46-116) U/L Ammonia 50 H (11-32) mmol/L Total Protein (6.4-8.2) g/dL Albumin (3.4-5.0) g/dL Globulin (2.3-3.5) g/dL Albumin/Globulin Ratio (1.2-2.2) Amylase (25-115) U/L Lipase (73-393) U/L Urine Color (YELLOW) Urine Appearance (CLEAR) Urine pH (5.0-8.0) Ur Specific [place] (1.008-1.030) Urine Protein (NEGATIVE) mg/dL Urine Glucose (UA) (NEGATIVE) mg/dL Urine Ketones (NEGATIVE) mg/dL Urine Occult Blood (NEGATIVE) Urine Nitrite (NEGATIVE) Urine Bilirubin (NEGATIVE) Urine Urobilinogen (0.2-1.0) EU/dL Ur Leukocyte Esterase (NEGATIVE) Urine RBC (0-5) Urine WBC (0-5) Ur Epithelial Cells Amorphous Sediment Urine Bacteria Urine Mucus Urine Opiates Screen (NEGATIVE) Ur Oxycodone Screen (NEGATIVE) Urine Methadone Screen (NEGATIVE) Ur Propoxyphene Screen (NEGATIVE) Ur Barbiturates Screen (NEGATIVE) Ur Tricyclics Screen (NEGATIVE) Ur Phencyclidine Scrn (NEGATIVE) Ur Amphetamine Screen (NEGATIVE) U Methamphetamines Scrn (NEGATIVE) Urine MDMA Screen (NEGATIVE) U Benzodiazepines Scrn (NEGATIVE) U Cocaine Metab Screen (NEGATIVE) U Marijuana (THC) Screen (NEGATIVE) Ethyl Alcohol mg/dL 02/01/19 02/02/19 02/02/19 Range/Units 21:46 05:18 05:18 WBC 5.6 (4.5-11.0) K/uL RBC 2.88 L (3.30-5.50) M/uL Hgb 10.0 L (12.0-15.0) g/dL Hct 30.0 L (36.0-48.0) % MCV 104 H (80-98) fL MCH 35 H (27-31) pg MCHC 33 (32-36) % Plt Count 118 L (150-400) K/uL Neut % (Auto) 67 H (36-66) % Lymph % (Auto) 21 L (24-44) % Miller % (Auto) 11 H (2-6) % Eos % (Auto) 1 L (2-4) % Baso % (Auto) 1 (0-1) % PT (9.5-12.0) sec INR (0.80-1.20) Sodium 130 L (140-148) mmol/L Potassium 3.0 L (3.6-5.2) mmol/L Chloride 96 L (100-108) mmol/L Carbon Dioxide 24 (21-32) mmol/L Anion Gap 13.0 (5.0-14.0) mmol/L BUN 10 (7-18) mg/dL Creatinine 0.5 L (0.6-1.0) mg/dL Est Cr Clr Drug Dosing 125.28 mL/min Estimated GFR (MDRD) > 60 (>60) Glucose 72 L (74-106) mg/dL Calcium 7.1 L (8.5-10.1) mg/dL Magnesium 2.6 H D (1.8-2.4) mg/dL Total Bilirubin (0.2-1.0) mg/dL Direct Bilirubin (0.0-0.2) mg/dL Indirect Bilirubin AST (15-37) U/L ALT (12-78) U/L Alkaline Phosphatase (46-116) U/L Ammonia (11-32) mmol/L Total Protein (6.4-8.2) g/dL Albumin (3.4-5.0) g/dL Globulin (2.3-3.5) g/dL Albumin/Globulin Ratio (1.2-2.2) Amylase 37 D 37 (25-115) U/L Lipase (73-393) U/L Urine Color (YELLOW) Urine Appearance (CLEAR) Urine pH (5.0-8.0) Ur Specific [place] (1.008-1.030) Urine Protein (NEGATIVE) mg/dL Urine Glucose (UA) (NEGATIVE) mg/dL Urine Ketones (NEGATIVE) mg/dL Urine Occult Blood (NEGATIVE) Urine Nitrite (NEGATIVE) Urine Bilirubin (NEGATIVE) Urine Urobilinogen (0.2-1.0) EU/dL Ur Leukocyte Esterase (NEGATIVE) Urine RBC (0-5) Urine WBC (0-5) Ur Epithelial Cells Amorphous Sediment Urine Bacteria Urine Mucus Urine Opiates Screen (NEGATIVE) Ur Oxycodone Screen (NEGATIVE) Urine Methadone Screen (NEGATIVE) Ur Propoxyphene Screen (NEGATIVE) Ur Barbiturates Screen (NEGATIVE) Ur Tricyclics Screen (NEGATIVE) Ur Phencyclidine Scrn (NEGATIVE) Ur Amphetamine Screen (NEGATIVE) U Methamphetamines Scrn (NEGATIVE) Urine MDMA Screen (NEGATIVE) U Benzodiazepines Scrn (NEGATIVE) U Cocaine Metab Screen (NEGATIVE) U Marijuana (THC) Screen (NEGATIVE) Ethyl Alcohol mg/dL 02/02/19 02/02/19 Range/Units 08:55 08:55 WBC (4.5-11.0) K/uL RBC (3.30-5.50) M/uL Hgb (12.0-15.0) g/dL Hct (36.0-48.0) % MCV (80-98) fL MCH (27-31) pg MCHC (32-36) % Plt Count (150-400) K/uL Neut % (Auto) (36-66) % Lymph % (Auto) (24-44) % Miller % (Auto) (2-6) % Eos % (Auto) (2-4) % Baso % (Auto) (0-1) % PT 12.9 H (9.5-12.0) sec INR 1.21 H (0.80-1.20) Sodium (140-148) mmol/L Potassium (3.6-5.2) mmol/L Chloride (100-108) mmol/L Carbon Dioxide (21-32) mmol/L Anion Gap (5.0-14.0) mmol/L BUN (7-18) mg/dL Creatinine (0.6-1.0) mg/dL Est Cr Clr Drug Dosing mL/min Estimated GFR (MDRD) (>60) Glucose (74-106) mg/dL Calcium (8.5-10.1) mg/dL Magnesium (1.8-2.4) mg/dL Total Bilirubin 15.8 H (0.2-1.0) mg/dL Direct Bilirubin 12.25 H (0.0-0.2) mg/dL Indirect Bilirubin 3.55 AST 261 H (15-37) U/L ALT 66 (12-78) U/L Alkaline Phosphatase 293 H (46-116) U/L Ammonia (11-32) mmol/L Total Protein 5.8 L (6.4-8.2) g/dL Albumin 1.5 L (3.4-5.0) g/dL Globulin 4.3 H (2.3-3.5) g/dL Albumin/Globulin Ratio 0.4 L (1.2-2.2) Amylase (25-115) U/L Lipase (73-393) U/L Urine Color (YELLOW) Urine Appearance (CLEAR) Urine pH (5.0-8.0) Ur Specific [place] (1.008-1.030) Urine Protein (NEGATIVE) mg/dL Urine Glucose (UA) (NEGATIVE) mg/dL Urine Ketones (NEGATIVE) mg/dL Urine Occult Blood (NEGATIVE) Urine Nitrite (NEGATIVE) Urine Bilirubin (NEGATIVE) Urine Urobilinogen (0.2-1.0) EU/dL Ur Leukocyte Esterase (NEGATIVE) Urine RBC (0-5) Urine WBC (0-5) Ur Epithelial Cells Amorphous Sediment Urine Bacteria Urine Mucus Urine Opiates Screen (NEGATIVE) Ur Oxycodone Screen (NEGATIVE) Urine Methadone Screen (NEGATIVE) Ur Propoxyphene Screen (NEGATIVE) Ur Barbiturates Screen (NEGATIVE) Ur Tricyclics Screen (NEGATIVE) Ur Phencyclidine Scrn (NEGATIVE) Ur Amphetamine Screen (NEGATIVE) U Methamphetamines Scrn (NEGATIVE) Urine MDMA Screen (NEGATIVE) U Benzodiazepines Scrn (NEGATIVE) U Cocaine Metab Screen (NEGATIVE) U Marijuana (THC) Screen (NEGATIVE) Ethyl Alcohol mg/dL Med Orders - Current: Current Medications Folic Acid (Folic Acid) 1 mg PO DAILY EMMA Gabapentin (Neurontin) 400 mg PO Q8H EMMA Stop: 02/06/19 02:01 Last Admin: 02/02/19 10:29 Dose: 400 mg Potassium Chloride 20 meq/Lidocaine HCl 2 ml/ Sodium Chloride 112 mls @ 56 mls/ hr IV Q2H EMMA Stop: 02/02/19 13:59 Last Admin: 02/02/19 10:29 Dose: 56 mls/hr Potassium Chloride/Sodium Chloride (Normal Saline With 20 Meq Kcl) 1,000 mls @ 60 mls/hr IV ASDIRECTED EMMA Lorazepam (Ativan) 0 mg IV ASDIRECTED EMMA; Protocol Last Admin: 02/02/19 07:43 Dose: 2 mg Pantoprazole Sodium (Protonix Iv) 40 mg IV BEDTIME EMMA Thiamine HCl (Vitamin B-1) 100 mg PO DAILY EMMA Discontinued Medications Potassium Chloride/Sodium Chloride (Normal Saline With 20 Meq Kcl) 1,000 mls @ 500 mls/hr IV ASDIRECTED EMMA Last Admin: 02/01/19 17:01 Dose: 500 mls/hr Magnesium Sulfate 2 gm/ Premix 50 mls @ 12.5 mls/hr IV ONETIME ONE Stop: 02/01/19 21:55 Last Admin: 02/01/19 18:32 Dose: 12.5 mls/hr Potassium Chloride 20 meq/ (Premix) 100 mls @ 50 mls/hr IV ONETIME ONE Stop: 02/01/19 20:50 Last Admin: 02/01/19 21:41 Dose: 50 mls/hr Potassium Chloride 20 meq/ (Premix) 100 mls @ 50 mls/hr IV ONETIME ONE Stop: 02/01/19 20:51 Last Admin: 02/02/19 01:25 Dose: 50 mls/hr Multivitamins/Minerals 10 ml/Thiamine HCl 100 mg/ Folic Acid 1 mg/ Magnesium Sulfate 2 gm/ Sodium Chloride 1,015.2 mls @ 999 mls/hr IV ONETIME ONE Stop: 02/02/19 03:00 Last Admin: 02/02/19 01:29 Dose: 999 mls/hr Ceftriaxone Sodium 1 gm/ (Sodium Chloride) 50 mls @ 100 mls/hr IV ONETIME ONE Stop: 02/01/19 20:55 Last Admin: 02/01/19 22:28 Dose: 100 mls/hr Potassium Chloride/Sodium Chloride (Normal Saline With 20 Meq Kcl) 1,000 mls @ 125 mls/hr IV ASDIRECTED EMMA Last Admin: 02/02/19 10:30 Dose: 125 mls/hr Lidocaine HCl (Xylocaine-Mpf 1%) 5 ml INJECT ONETIME ONE Stop: 02/01/19 20:59 Last Admin: 02/01/19 21:56 Dose: 5 ml Lorazepam (Ativan) 2 mg IVPUSH ONETIME ONE Stop: 02/01/19 19:15 Last Admin: 02/01/19 19:53 Dose: 2 mg Nitrofurantoin Macrocrystals (Macrobid) 100 mg PO ONETIME ONE Stop: 02/01/19 17:41 Last Admin: 02/01/19 19:57 Dose: Not Given Ondansetron HCl (Zofran) 4 mg IVPUSH ONETIME ONE Stop: 02/01/19 18:28 Last Admin: 02/01/19 18:42 Dose: 4 mg Pantoprazole Sodium (Protonix Iv) 40 mg IV DAILY EMMA Last Admin: 02/01/19 21:58 Dose: 40 mg Potassium Chloride (Potassium Chloride) 40 meq PO ONETIME ONE Stop: 02/01/19 17:42 Last Admin: 02/01/19 19:57 Dose: Not Given Potassium Chloride (Klor-Con M20) 40 meq PO ONETIME ONE Stop: 02/02/19 09:31 Last Admin: 02/02/19 10:29 Dose: 40 meq - Exam General: Moderate Distress, Sedated, Lethargic Lungs: Clear to Auscultation, Normal Respiratory Effort Cardiovascular: Regular Rate, Regular Rhythm, No Murmurs GI/Abdominal Exam: Soft, Non-Tender, No Organomegaly, No Distention Extremities: Non-Tender, No Pedal Edema - Problem List Review Problem List Initiated/Reviewed/Updated: Yes - My Orders Last 24 Hours: My Active Orders 02/02/19 09:47 Patient Status [ADT] Routine 02/02/19 10:00 Gabapentin [Neurontin] 400 mg PO Q8H Potassium Chloride 20 meq Lidocaine 1% [Xylocaine 1%] 2 ml Sodium Chloride 0.9 % [Normal Saline] 100 ml IV Q2H 02/02/19 10:44 HCG QUALITATIVE,SERUM [CHEM] Stat 02/02/19 10:45 Folic Acid 1 mg PO DAILY NS + KCl 20mEq/L [Normal Saline with 20 mEq KCl] 1,000 ml IV ASDIRECTED Thiamine [Vitamin B-1] 100 mg PO DAILY 02/02/19 17:00 POTASSIUM,K [CHEM] Stat 02/02/19 Lunch Regular Diet [DIET] 02/03/19 05:00 CBC WITH AUTO DIFF [HEME] Timed COMPREHENSIVE METABOLIC PN,CMP [CHEM] Timed INR,PT,PROTHROMBIN TIME [COAG] Timed MAGNESIUM [CHEM] Timed - Plan Plan:: ASSESSMENT AND PLAN Alcoholic Hepatitis with ascites and jaundice; discussed with Ms. Root how serious this is and if she continues to drink it will be fatal. Discussed hospitalization course with plan to discharge to Inpatient Treatment Program or Intensive Outpatient Treatment Program. She is agrees with plan of care at this time. reports she just wanted to go to Detox because she felt so sick. Express concerns about her current health and wants to get better. bilirubin has improved modestly from last night. -Maddrey Score 22on admission Alcohol Withdrawal -alcohol withdrawal protocol -Transfer to ICU because of tachycardia Hypokalemia-potassium level improved but still low -IV and oral potassium replacement -recheck Potassium later this afternoon and in am Hypomagnesium -recheck magnesium in am Pancreatitis - lipase level improved this morning -pain management -anti-nausea medication -regular diet Urinary Tract Infection -Rocephin 1 gram IV every 24 hours -IV fluids -I&O -urine culture pending Alcoholism -referral to Spiritual Care -referral to Case Management and Social Service for placement into Inpatient Treatment Program at time of discharge MAINTENANCE ISSUES -DVT prophylaxis; SCD -GI prophylaxis; IV Protonix 40 mg daily -Green catheter; not indicated -Nutrition; clear liquid diet -Nicotine dependence; not required -referral Broom Maker, Social Service, Spiritual CODE STATUS-FULL ADMISSION STATUS-patient will be admitted to inpatient status, expect at least a 2 night hospital stay for evaluation and management of problems as outlined above. At the time of this admission I do not reasonably expected evaluation and management of this problem will require more than a 96 hour hospital stay. DISPOSITION-anticipate discharge to Inpatient Treatment after the hospital stay. Primary Care Provider: Deisi Wilkins, [place], [place]. Hospitalist: Dr. King M.D.
[2019-02-02] MEDS ORDERED: LORazepam 1 MG Tab PO SCH (12:15)
[2019-02-02] MEDS: Folic Acid 1 MG Tab PO SCH (12:50)
[2019-02-02] MEDS: Thiamine 100 MG Tab PO SCH (12:50)
[2019-02-02] MEDS ORDERED: Pantoprazole 40 MG Vial IV SCH (21:00)
[2019-02-02] MEDS: cefTRIAXone 1 GM in Sodium Chloride 0.9% 50 ML IV SCH (21:02)
[2019-02-03] MEDS: Gabapentin 400 MG Cap PO SCH ×4 (01:25→18:26)
[2019-02-03] MEDS: LORazepam 2 MG/ML SDV IV SCH ×3 (02:22→07:53)
[2019-02-03] MEDS: NS + KCl 20mEq/L 1,000 ML IV SCH ×2 (02:25→18:56)
[2019-02-03] MEDS: Thiamine 100 MG Tab PO SCH (08:39)
[2019-02-03] MEDS: Folic Acid 1 MG Tab PO SCH (08:39)
[2019-02-03] MEDS: Magnesium Sulfate/Water 2 GM in Premix Bag 1 BAG IV SCH ×2 (08:40→15:03)
[2019-02-03] MEDS: Potassium Chloride 20 MEQ, Lidocaine 1% 2 ML in Sodium Chloride 0.9% 100 ML IV SCH ×2 (08:40→10:49)
[2019-02-03] MEDS ORDERED: LORazepam 2 MG/ML SDV IVPUSH PRN (08:54)
[2019-02-03] MEDS ORDERED: Potassium Chloride 20 MEQ Tab.ER PO ONE (09:00)
--- NOTE | 2019-02-03 09:52 | PCM.PN ---
- General Info Date of Service: 02/03/19 Subjective Update: Ms. Root has shown more evidence of alcohol withdrawal over the last 24 hours, she has required high doses of lorazepam. She is intermittently agitated and then very sedated. Bilirubin has gone up and last 24 hours, [facility] today. Because of her sedation she is unable to provide meaningful history concerning symptoms or review of systems. - Patient Data Vitals - Most Recent: Last Vital Signs Temp 99.1 F 02/03/19 07:56 Pulse 122 H 02/03/19 07:56 Resp 29 H 02/03/19 07:56 BP 108/79 02/03/19 07:56 Pulse Ox 98 02/03/19 07:56 Weight - Most Recent: 150 lb I&O - Last 24 Hours: Intake & Output 02/02/19 02/03/19 02/03/19 22:59 06:59 14:59 Intake Total 1020 1022 Balance 1020 1022 Lab Results Last 24 Hours: Laboratory Results - last 24 hr 02/02/19 02/02/19 02/03/19 Range/Units 08:55 17:00 05:17 WBC 7.0 (4.5-11.0) K/uL RBC 2.98 L (3.30-5.50) M/uL Hgb 10.4 L (12.0-15.0) g/dL Hct 31.2 L (36.0-48.0) % MCV 105 H (80-98) fL MCH 35 H (27-31) pg MCHC 33 (32-36) % Plt Count 138 L (150-400) K/uL Neut % (Auto) 69 H (36-66) % Lymph % (Auto) 19 L (24-44) % Dane % (Auto) 11 H (2-6) % Eos % (Auto) 0 L (2-4) % Baso % (Auto) 1 (0-1) % PT (9.5-12.0) sec INR (0.80-1.20) Sodium (140-148) mmol/L Potassium 3.7 (3.6-5.2) mmol/L Chloride (100-108) mmol/L Carbon Dioxide (21-32) mmol/L Anion Gap (5.0-14.0) mmol/L BUN (7-18) mg/dL Creatinine (0.6-1.0) mg/dL Est Cr Clr Drug Dosing mL/min Estimated GFR (MDRD) (>60) Glucose (74-106) mg/dL Calcium (8.5-10.1) mg/dL Magnesium (1.8-2.4) mg/dL Total Bilirubin (0.2-1.0) mg/dL AST (15-37) U/L ALT (12-78) U/L Alkaline Phosphatase (46-116) U/L Total Protein (6.4-8.2) g/dL Albumin (3.4-5.0) g/dL Globulin (2.3-3.5) g/dL Albumin/Globulin Ratio (1.2-2.2) HCG, Qual Negative 02/03/19 02/03/19 Range/Units 05:17 05:17 WBC (4.5-11.0) K/uL RBC (3.30-5.50) M/uL Hgb (12.0-15.0) g/dL Hct (36.0-48.0) % MCV (80-98) fL MCH (27-31) pg MCHC (32-36) % Plt Count (150-400) K/uL Neut % (Auto) (36-66) % Lymph % (Auto) (24-44) % Dane % (Auto) (2-6) % Eos % (Auto) (2-4) % Baso % (Auto) (0-1) % PT 13.3 H (9.5-12.0) sec INR 1.25 H (0.80-1.20) Sodium 128 L (140-148) mmol/L Potassium 3.1 L (3.6-5.2) mmol/L Chloride 97 L (100-108) mmol/L Carbon Dioxide 20 L (21-32) mmol/L Anion Gap 14.1 H (5.0-14.0) mmol/L BUN 6 L (7-18) mg/dL Creatinine 0.5 L (0.6-1.0) mg/dL Est Cr Clr Drug Dosing 125.28 mL/min Estimated GFR (MDRD) > 60 (>60) Glucose 88 (74-106) mg/dL Calcium 7.3 L (8.5-10.1) mg/dL Magnesium 1.6 L D (1.8-2.4) mg/dL Total Bilirubin 18.7 H (0.2-1.0) mg/dL AST 189 H (15-37) U/L ALT 58 (12-78) U/L Alkaline Phosphatase 279 H (46-116) U/L Total Protein 5.6 L (6.4-8.2) g/dL Albumin 1.5 L (3.4-5.0) g/dL Globulin 4.1 H (2.3-3.5) g/dL Albumin/Globulin Ratio 0.4 L (1.2-2.2) HCG, Qual Stewart Results Last 24 Hours: Microbiology 02/01/19 18:57 Urine Culture - Preliminary Urine, Clean Catch MIXED BILLIE DAY 1 02/01/19 16:47 Urine Culture - Preliminary Urine, Clean Catch MIXED BILLIE DAY 1 Med Orders - Current: Current Medications Folic Acid (Folic Acid) 1 mg PO DAILY [facility] Last Admin: 02/03/19 08:39 Dose: 1 mg Gabapentin (Neurontin) 400 mg PO Q8H [facility] Stop: 02/06/19 02:01 Last Admin: 02/03/19 08:39 Dose: 400 mg Potassium Chloride/Sodium Chloride (Normal Saline With 20 Meq Kcl) 1,000 mls @ 60 mls/hr IV ASDIRECTED [facility] Last Admin: 02/03/19 02:25 Dose: 60 mls/hr Ceftriaxone Sodium 1 gm/ (Sodium Chloride) 50 mls @ 100 mls/hr IV Q24H [facility] Stop: 02/06/19 21:01 Last Admin: 02/02/19 21:02 Dose: 100 mls/hr Potassium Chloride 20 meq/Lidocaine HCl 2 ml/ Sodium Chloride 112 mls @ 56 mls/ hr IV Q2H [facility] Stop: 02/03/19 12:59 Last Admin: 02/03/19 08:40 Dose: 56 mls/hr Magnesium Sulfate 2 gm/ Premix 50 mls @ 25 mls/hr IV Q6H [facility] Stop: 02/03/19 16:59 Last Admin: 02/03/19 08:40 Dose: 25 mls/hr Lorazepam (Ativan) 0 mg IV ASDIRECTED [facility]; Protocol Last Admin: 02/03/19 07:53 Dose: 2 mg Lorazepam (Ativan) 0 mg PO ASDIRECTED [facility]; Protocol Last Admin: 02/02/19 12:49 Dose: 2 mg Lorazepam (Ativan) 2 mg IVPUSH Q1H PRN PRN Reason: Agitation Lorazepam (Ativan) 4 mg IVPUSH Q1H PRN PRN Reason: Agitation Pantoprazole Sodium (Protonix) 40 mg PO BEDTIME [facility] Thiamine HCl (Vitamin B-1) 100 mg PO DAILY [facility] Last Admin: 02/03/19 08:39 Dose: 100 mg Discontinued Medications Potassium Chloride/Sodium Chloride (Normal Saline With 20 Meq Kcl) 1,000 mls @ 500 mls/hr IV ASDIRECTED [facility] Last Admin: 02/01/19 17:01 Dose: 500 mls/hr Magnesium Sulfate 2 gm/ Premix 50 mls @ 12.5 mls/hr IV ONETIME ONE Stop: 02/01/19 21:55 Last Admin: 02/01/19 18:32 Dose: 12.5 mls/hr Potassium Chloride 20 meq/ (Premix) 100 mls @ 50 mls/hr IV ONETIME ONE Stop: 02/01/19 20:50 Last Admin: 02/01/19 21:41 Dose: 50 mls/hr Potassium Chloride 20 meq/ (Premix) 100 mls @ 50 mls/hr IV ONETIME ONE Stop: 02/01/19 20:51 Last Admin: 02/02/19 01:25 Dose: 50 mls/hr Multivitamins/Minerals 10 ml/Thiamine HCl 100 mg/ Folic Acid 1 mg/ Magnesium Sulfate 2 gm/ Sodium Chloride 1,015.2 mls @ 999 mls/hr IV ONETIME ONE Stop: 02/02/19 03:00 Last Admin: 02/02/19 01:29 Dose: 999 mls/hr Ceftriaxone Sodium 1 gm/ (Sodium Chloride) 50 mls @ 100 mls/hr IV ONETIME ONE Stop: 02/01/19 20:55 Last Admin: 02/01/19 22:28 Dose: 100 mls/hr Potassium Chloride/Sodium Chloride (Normal Saline With 20 Meq Kcl) 1,000 mls @ 125 mls/hr IV ASDIRECTED [facility] Last Admin: 02/02/19 10:30 Dose: 125 mls/hr Potassium Chloride 20 meq/Lidocaine HCl 2 ml/ Sodium Chloride 112 mls @ 56 mls/ hr IV Q2H [facility] Stop: 02/02/19 13:59 Last Admin: 02/02/19 12:40 Dose: 56 mls/hr Lidocaine HCl (Xylocaine-Mpf 1%) 5 ml INJECT ONETIME ONE Stop: 02/01/19 20:59 Last Admin: 02/01/19 21:56 Dose: 5 ml Lorazepam (Ativan) 2 mg IVPUSH ONETIME ONE Stop: 02/01/19 19:15 Last Admin: 02/01/19 19:53 Dose: 2 mg Nitrofurantoin Macrocrystals (Macrobid) 100 mg PO ONETIME ONE Stop: 02/01/19 17:41 Last Admin: 02/01/19 19:57 Dose: Not Given Ondansetron HCl (Zofran) 4 mg IVPUSH ONETIME ONE Stop: 02/01/19 18:28 Last Admin: 02/01/19 18:42 Dose: 4 mg Pantoprazole Sodium (Protonix Iv) 40 mg IV DAILY [facility] Last Admin: 02/01/19 21:58 Dose: 40 mg Pantoprazole Sodium (Protonix Iv) 40 mg IV BEDTIME [facility] Last Admin: 02/02/19 21:02 Dose: 40 mg Potassium Chloride (Potassium Chloride) 40 meq PO ONETIME ONE Stop: 02/01/19 17:42 Last Admin: 02/01/19 19:57 Dose: Not Given Potassium Chloride (Klor-Con M20) 40 meq PO ONETIME ONE Stop: 02/02/19 09:31 Last Admin: 02/02/19 10:29 Dose: 40 meq Potassium Chloride (Klor-Con M20) 40 meq PO ONETIME ONE Stop: 02/03/19 09:01 Last Admin: 02/03/19 08:39 Dose: 40 meq - Exam Quality Assessment: DVT Prophylaxis General: Sedated, Lethargic Lungs: Clear to Auscultation, Normal Respiratory Effort Cardiovascular: Regular Rhythm, No Murmurs, Tachycardia GI/Abdominal Exam: Soft, Non-Tender, No Organomegaly, No Distention Extremities: Non-Tender, No Pedal Edema - Problem List Review Problem List Initiated/Reviewed/Updated: Yes - My Orders Last 24 Hours: My Active Orders 02/02/19 09:47 Patient Status [ADT] Routine 02/02/19 10:00 Gabapentin [Neurontin] 400 mg PO Q8H 02/02/19 10:45 Folic Acid 1 mg PO DAILY NS + KCl 20mEq/L [Normal Saline with 20 mEq KCl] 1,000 ml IV ASDIRECTED Thiamine [Vitamin B-1] 100 mg PO DAILY 02/02/19 12:15 LORazepam [Ativan] See Protocol PO ASDIRECTED 02/02/19 21:00 cefTRIAXone [Rocephin] 1 gm Sodium Chloride 0.9% [Normal Saline] 50 ml IV Q24H 02/02/19 Lunch Regular Diet [DIET] 02/03/19 08:51 LORazepam [Ativan] 2 mg IVPUSH Q1H PRN 02/03/19 08:54 LORazepam [Ativan] 4 mg IVPUSH Q1H PRN 02/03/19 09:00 Magnesium Sulfate/Water [Magnesium Sulfate in Water Premix] 2 gm Premix Bag 1 bag IV Q6H Potassium Chloride 20 meq Lidocaine 1% [Xylocaine 1%] 2 ml Sodium Chloride 0.9 % [Normal Saline] 100 ml IV Q2H 02/03/19 17:00 POTASSIUM,K [CHEM] Stat 02/04/19 05:00 COMPREHENSIVE METABOLIC PN,CMP [CHEM] Timed INR,PT,PROTHROMBIN TIME [COAG] Timed MAGNESIUM [CHEM] Timed - Plan Plan:: ASSESSMENT AND PLAN Alcoholic Hepatitis with ascites and jaundice; discussed with Ms. Root how serious this is and if she continues to drink it will be fatal. Discussed hospitalization course with plan to discharge to Inpatient Treatment Program or Intensive Outpatient Treatment Program. She is agrees with plan of care at this time. Bilirubin increased over the last 24 hours, INR stable. [facility] discriminant function today is 25. -Continue supportive care -Not currently candidate for glucocorticoid therapy Alcohol Withdrawal-or severe over the past 24 hours -alcohol withdrawal protocol -Gabapentin 400 mg by mouth every 8 hours 4 days, then 200 mg by mouth every 8 hours for an additional 4 days Hypokalemia-potassium level improved but still low -IV and oral potassium replacement -recheck Potassium later this afternoon and in am Hypomagnesium -IV magnesium replacement -recheck magnesium in am Pancreatitis - resolved -pain management -anti-nausea medication -regular diet Urinary Tract Infection -Rocephin 1 gram IV every 24 hours -IV fluids -I&O -urine culture pending Alcoholism -referral to Spiritual Care -referral to Case Management and Social Service for placement into Inpatient Treatment Program at time of discharge MAINTENANCE ISSUES -DVT prophylaxis; SCD -GI prophylaxis; IV Protonix 40 mg daily -Green catheter; not indicated -Nutrition; clear liquid diet -Nicotine dependence; not required -referral Outside Event Sales Specialist, Social Service, Spiritual CODE STATUS-FULL ADMISSION STATUS-patient will be admitted to inpatient status, expect at least a 2 night hospital stay for evaluation and management of problems as outlined above. At the time of this admission I do not reasonably expected evaluation and management of this problem will require more than a 96 hour hospital stay. DISPOSITION-anticipate discharge to Inpatient Treatment after the hospital stay. Primary Care Provider: Deisi Wilkins, [place], [place]. Hospitalist: Dr. King M.D.
[2019-02-03] MEDS: LORazepam 2 MG/ML SDV IVPUSH PRN ×9 (11:51→22:19)
[2019-02-03] MEDS: Pantoprazole 40 MG Tab.CR PO SCH (21:04)
[2019-02-03] MEDS: cefTRIAXone 1 GM in Sodium Chloride 0.9% 50 ML IV SCH (21:08)
[2019-02-04] MEDS: LORazepam 2 MG/ML SDV IVPUSH PRN ×3 (00:13→07:52)
[2019-02-04] MEDS: Ibuprofen 400 MG Tab PO PRN ×2 (00:32→21:18)
[2019-02-04] MEDS: Gabapentin 400 MG Cap PO SCH ×3 (01:35→18:16)
[2019-02-04] MEDS: Folic Acid 1 MG Tab PO SCH (08:00)
[2019-02-04] MEDS: Thiamine 100 MG Tab PO SCH (08:00)
--- NOTE | 2019-02-04 08:55 | PCM.PN ---
- General Info Date of Service: 02/04/19 Subjective Update: No acute events overnight. She is very lethargic and minimally interactive. She cannot provide reliable history. She did have some low grade fevers. Bilirubin is more elevated at 24 today. She continues to require lorazepam for alcohol withdrawal. Functional Status: Reports: Pain Controlled - Review of Systems General: Reports: Fever - Patient Data Vitals - Most Recent: Last Vital Signs Temp 37.7 C 02/04/19 07:36 Pulse 109 H 02/04/19 07:36 Resp 16 02/04/19 07:36 BP 91/66 02/04/19 07:36 Pulse Ox 92 L 02/04/19 07:36 Weight - Most Recent: 68.039 kg I&O - Last 24 Hours: Intake & Output 02/03/19 02/04/19 02/04/19 22:59 06:59 14:59 Intake Total 898 864 Balance 898 864 Lab Results Last 24 Hours: Laboratory Results - last 24 hr 02/03/19 02/04/19 02/04/19 Range/Units 17:06 04:20 04:20 PT 12.9 H (9.5-12.0) sec INR 1.21 H (0.80-1.20) Sodium 132 L (140-148) mmol/L Potassium 4.9 3.5 L (3.6-5.2) mmol/L Chloride 102 (100-108) mmol/L Carbon Dioxide 18 L (21-32) mmol/L Anion Gap 15.5 H (5.0-14.0) mmol/L BUN 13 D (7-18) mg/dL Creatinine 1.1 H D (0.6-1.0) mg/dL Est Cr Clr Drug Dosing 56.94 mL/min Estimated GFR (MDRD) 54 L (>60) Glucose 109 H (74-106) mg/dL Calcium 7.5 L (8.5-10.1) mg/dL Magnesium 2.6 H D (1.8-2.4) mg/dL Total Bilirubin 24.0 H (0.2-1.0) mg/dL AST 111 H (15-37) U/L ALT 44 (12-78) U/L Alkaline Phosphatase 248 H (46-116) U/L Total Protein 5.6 L (6.4-8.2) g/dL Albumin 1.4 L (3.4-5.0) g/dL Globulin 4.2 H (2.3-3.5) g/dL Albumin/Globulin Ratio 0.3 L (1.2-2.2) Stewart Results Last 24 Hours: Microbiology 02/01/19 18:57 Urine Culture - Final Urine, Clean Catch MIXED BILLIE DAY 2 02/01/19 16:47 Urine Culture - Final Urine, Clean Catch MIXED BILLIE DAY 2 Med Orders - Current: Current Medications Folic Acid (Folic Acid) 1 mg PO DAILY [facility] Last Admin: 02/04/19 08:00 Dose: 1 mg Gabapentin (Neurontin) 400 mg PO Q8H [facility] Stop: 02/06/19 02:01 Last Admin: 02/04/19 01:35 Dose: 400 mg Potassium Chloride/Sodium Chloride (Normal Saline With 20 Meq Kcl) 1,000 mls @ 60 mls/hr IV ASDIRECTED [facility] Last Admin: 02/03/19 18:56 Dose: 60 mls/hr Ibuprofen (Motrin) 400 mg PO Q6H PRN PRN Reason: Fever Last Admin: 02/04/19 00:32 Dose: 400 mg Lorazepam (Ativan) 0 mg IV ASDIRECTED [facility]; Protocol Last Admin: 02/03/19 07:53 Dose: 2 mg Lorazepam (Ativan) 0 mg PO ASDIRECTED [facility]; Protocol Last Admin: 02/02/19 12:49 Dose: 2 mg Lorazepam (Ativan) 2 mg IVPUSH Q1H PRN PRN Reason: Agitation Last Admin: 02/04/19 07:52 Dose: 2 mg Lorazepam (Ativan) 4 mg IVPUSH Q1H PRN PRN Reason: Agitation Pantoprazole Sodium (Protonix) 40 mg PO BEDTIME [facility] Last Admin: 02/03/19 21:04 Dose: Not Given Thiamine HCl (Vitamin B-1) 100 mg PO DAILY [facility] Last Admin: 02/04/19 08:00 Dose: 100 mg Discontinued Medications Potassium Chloride/Sodium Chloride (Normal Saline With 20 Meq Kcl) 1,000 mls @ 500 mls/hr IV ASDIRECTED [facility] Last Admin: 02/01/19 17:01 Dose: 500 mls/hr Magnesium Sulfate 2 gm/ Premix 50 mls @ 12.5 mls/hr IV ONETIME ONE Stop: 02/01/19 21:55 Last Admin: 02/01/19 18:32 Dose: 12.5 mls/hr Potassium Chloride 20 meq/ (Premix) 100 mls @ 50 mls/hr IV ONETIME ONE Stop: 02/01/19 20:50 Last Admin: 02/01/19 21:41 Dose: 50 mls/hr Potassium Chloride 20 meq/ (Premix) 100 mls @ 50 mls/hr IV ONETIME ONE Stop: 02/01/19 20:51 Last Admin: 02/02/19 01:25 Dose: 50 mls/hr Multivitamins/Minerals 10 ml/Thiamine HCl 100 mg/ Folic Acid 1 mg/ Magnesium Sulfate 2 gm/ Sodium Chloride 1,015.2 mls @ 999 mls/hr IV ONETIME ONE Stop: 02/02/19 03:00 Last Admin: 02/02/19 01:29 Dose: 999 mls/hr Ceftriaxone Sodium 1 gm/ (Sodium Chloride) 50 mls @ 100 mls/hr IV ONETIME ONE Stop: 02/01/19 20:55 Last Admin: 02/01/19 22:28 Dose: 100 mls/hr Potassium Chloride/Sodium Chloride (Normal Saline With 20 Meq Kcl) 1,000 mls @ 125 mls/hr IV ASDIRECTED [facility] Last Admin: 02/02/19 10:30 Dose: 125 mls/hr Potassium Chloride 20 meq/Lidocaine HCl 2 ml/ Sodium Chloride 112 mls @ 56 mls/ hr IV Q2H [facility] Stop: 02/02/19 13:59 Last Admin: 02/02/19 12:40 Dose: 56 mls/hr Ceftriaxone Sodium 1 gm/ (Sodium Chloride) 50 mls @ 100 mls/hr IV Q24H [facility] Stop: 02/06/19 21:01 Last Admin: 02/03/19 21:08 Dose: 100 mls/hr Potassium Chloride 20 meq/Lidocaine HCl 2 ml/ Sodium Chloride 112 mls @ 56 mls/ hr IV Q2H [facility] Stop: 02/03/19 12:59 Last Admin: 02/03/19 10:49 Dose: 56 mls/hr Magnesium Sulfate 2 gm/ Premix 50 mls @ 25 mls/hr IV Q6H [facility] Stop: 02/03/19 16:59 Last Admin: 02/03/19 15:03 Dose: 25 mls/hr Lidocaine HCl (Xylocaine-Mpf 1%) 5 ml INJECT ONETIME ONE Stop: 02/01/19 20:59 Last Admin: 02/01/19 21:56 Dose: 5 ml Lorazepam (Ativan) 2 mg IVPUSH ONETIME ONE Stop: 02/01/19 19:15 Last Admin: 02/01/19 19:53 Dose: 2 mg Nitrofurantoin Macrocrystals (Macrobid) 100 mg PO ONETIME ONE Stop: 02/01/19 17:41 Last Admin: 02/01/19 19:57 Dose: Not Given Ondansetron HCl (Zofran) 4 mg IVPUSH ONETIME ONE Stop: 02/01/19 18:28 Last Admin: 02/01/19 18:42 Dose: 4 mg Pantoprazole Sodium (Protonix Iv) 40 mg IV DAILY [facility] Last Admin: 02/01/19 21:58 Dose: 40 mg Pantoprazole Sodium (Protonix Iv) 40 mg IV BEDTIME [facility] Last Admin: 02/02/19 21:02 Dose: 40 mg Potassium Chloride (Potassium Chloride) 40 meq PO ONETIME ONE Stop: 02/01/19 17:42 Last Admin: 02/01/19 19:57 Dose: Not Given Potassium Chloride (Klor-Con M20) 40 meq PO ONETIME ONE Stop: 02/02/19 09:31 Last Admin: 02/02/19 10:29 Dose: 40 meq Potassium Chloride (Klor-Con M20) 40 meq PO ONETIME ONE Stop: 02/03/19 09:01 Last Admin: 02/03/19 08:39 Dose: 40 meq - Exam Quality Assessment: No: Supplemental Oxygen General: Alert, No Acute Distress, Lethargic. No: Oriented, Cooperative Neck: Thyromegaly Lungs: Normal Respiratory Effort Cardiovascular: Regular Rhythm, Tachycardia GI/Abdominal Exam: Soft, No Distention, Tender Extremities: No Pedal Edema. No: Increased Warmth Skin: Warm, Dry Psy/Mental Status: Alert. No: Agitated - Problem List Review Problem List Initiated/Reviewed/Updated: Yes - My Orders Last 24 Hours: My Active Orders 02/04/19 09:00 Potassium Chloride 20 MEQ,Lidocaine 1% 2 ML IN 100ML NS @ 50 MLS/HR Potassium Chloride 20 meq Lidocaine 1% [Xylocaine 1%] 2 ml Sodium Chloride 0.9% [Normal Saline] 100 ml IV Q2H Sodium Chloride 0.9% [Normal Saline] 1,000 ml IV ASDIRECTED 02/05/19 05:00 CBC W/O DIFF,HEMOGRAM [HEME] Timed (1) COMPREHENSIVE METABOLIC PN,CMP [CHEM] Timed - Plan Plan:: ASSESSMENT AND PLAN Alcoholic Hepatitis with ascites and jaundice - patient had previously been excepting of treatment after the hospital stay but not currently able to participate in conversations. Bilirubin level rising and MDF is up to 28 today but not high enough to initiate steroids. Creatinine has nearly doubled in the past 24 hours and raises concern for early hepatorenal syndrome. -Fluid bolus this morning -Continue supportive care -Not currently candidate for glucocorticoid therapy -Further discussions about cessation and treatment after alcohol withdrawal complete Alcohol Withdrawal, severe - minimally interactive and seems to be getting worse. Hopefully we are nearing the peak of her withdrawal. -alcohol withdrawal protocol -Gabapentin 400 mg by mouth every 8 hours 4 days, then 200 mg by mouth every 8 hours for an additional 4 days Hypokalemia - potassium level again this morning. -IV potassium replacement -recheck Potassium in the morning Hypomagnesium - improved with supplementation. Pancreatitis - resolved -pain management -anti-nausea medication -regular diet Urinary Tract Infection - culture negative. -Discontinue antibiotics MAINTENANCE ISSUES -DVT prophylaxis; SCD -GI prophylaxis; PPI -Green catheter; not indicated -Nutrition; clear liquid diet DISPOSITION - anticipate discharge to Inpatient Treatment after the hospital stay. Kemal Amaya MD
[2019-02-04] MEDS ORDERED: Sodium Chloride 0.9% 1,000 ML IV SCH ×2 (09:00→17:00)
[2019-02-04] MEDS: Potassium Chloride 20 MEQ, Lidocaine 1% 2 ML in Sodium Chloride 0.9% 100 ML IV SCH ×2 (10:10→12:45)
[2019-02-04] MEDS: NS + KCl 20mEq/L 1,000 ML IV SCH (14:37)
[2019-02-04] MEDS: LORazepam 2 MG/ML SDV IV SCH (18:15)
[2019-02-04] MEDS ORDERED: NS + KCl 20mEq/L 1,000 ML IV SCH (19:16)
[2019-02-04] MEDS: Pantoprazole 40 MG Tab.CR PO SCH (21:17)
[2019-02-04] MEDS ORDERED: Sodium Chloride 0.9% 1,000 ML IV ONE (22:11)
[2019-02-05] MEDS: Gabapentin 400 MG Cap PO SCH ×2 (02:21→04:29)
[2019-02-05] MEDS ORDERED: Sodium Chloride 0.9% 10 ML SDV IV ONE (08:07)
[2019-02-05] MEDS ORDERED: Sodium Chloride 0.9% 500 ML IV ONE (08:15)
[2019-02-05] MEDS: Folic Acid 1 MG Tab PO SCH (08:52)
[2019-02-05] MEDS: Thiamine 100 MG Tab PO SCH (08:52)
[2019-02-05] MEDS ORDERED: Norepinephrine 4 MG in Dextrose 5% in Water 246 ML IV SCH ×2 (09:15)
--- NOTE | 2019-02-05 09:42 | PCM.DCSUM1 ---
Discharge Summary - Hospital Course Brief History: 43-year-old female with history of alcohol abuse who presented with one week of jaundice and 3-4 days of abdominal pain with nausea and vomiting. She was admitted for management of alcoholic hepatitis with possible mild pancreatitis and hypokalemia. Diagnosis: Stroke: No - Discharge Data Discharge Date: 02/05/19 Discharge Disposition: DC/Tfer to Acute Hospital 02 Condition: Stable - Referral to Home Health Primary Care Physician: PCP None - Discharge Diagnosis/Problem(s) (1) Alcoholic hepatitis with ascites SNOMED Code(s): 6579073171060828 ICD Code: K70.11 - ALCOHOLIC HEPATITIS WITH ASCITES Status: Acute Priority: High Current Visit: Yes (2) Alcohol withdrawal delirium, acute, hypoactive SNOMED Code(s): 3781387, 75343079 ICD Code: F10.231 - ALCOHOL DEPENDENCE WITH WITHDRAWAL DELIRIUM Status: Acute Current Visit: Yes (3) Acute kidney injury SNOMED Code(s): 99776543, 44534262 ICD Code: N17.9 - ACUTE KIDNEY FAILURE, UNSPECIFIED Status: Acute Current Visit: Yes (4) Hypokalemia SNOMED Code(s): 50102712 ICD Code: E87.6 - HYPOKALEMIA Status: Acute Priority: High Current Visit: Yes (5) Hypomagnesemia SNOMED Code(s): 780799620 ICD Code: E83.42 - HYPOMAGNESEMIA Status: Acute Priority: High Current Visit: Yes - Patient Summary/Data Consults: Consultations 02/01/19 20:26 Consult to Case Management/Director Of Development And Marketing [CONS] Routine Comment: Physician Instructions: Service(s) to be Consulted: Case Manage&Social Servic Reason for Consult: Chemical dependency Inpatient treatment for chronic alcoholism. Consult to Spiritual Care [CONS] Routine Hospital Course: Melyssa presented to the emergency room with one week of jaundice and 3-4 days of abdominal pain with nausea and vomiting. Workup in the emergency room revealed mild hyponatremia, significant hypokalemia as well as a bilirubin 17, AST greater than 300 and ALT around 100. An ultrasound in the emergency room did not show evidence for cholecystitis but did reveal fatty infiltration of the liver. She was admitted to the hospital for management of alcoholic hepatitis, possible mild pancreatitis and electrolyte correction. She was started on ceftriaxone for empiric coverage with possible urinary tract infection. Overnight following admission the patient did develop alcohol withdrawal with delirium. She was transferred to the intensive care unit. She was started on the lorazepam protocol to manage her alcohol withdrawal. She also received scheduled gabapentin for alcohol withdrawal. The morning after admission her bilirubin level is down very slightly at 16. Potassium is improving but still low with supplementation. She was lethargic with her alcohol withdrawal and this continued through the weekend and into Monday. On Monday, the day before discharge the patient was a little bit more interactive and seemed to be getting through the alcohol withdrawal. Lorazepam requirements were decreasing. Potassium level had been improving with supplementation. Unfortunately her bilirubin level did rise up to 24. AST and ALT had both been improving. Her creatinine level a day before discharge had risen from 0.5 up to 1.1 and was up to 2.6 on the day of discharge. Overnight prior to discharge the patient had a significant decrease in her urine output and made very little urine overnight. She appeared to be dehydrated so we did provide additional IV fluids. This did help slow her heart rate some intermittent improved her blood pressure overnight but did not help with urine output. On the morning of discharge her blood pressure has been trending down despite an additional fluid challenge. With the oliguria and significant rise in creatinine as well as worsening of blood pressure I'm concerned about hepatorenal syndrome with unclear precipitant at this time. Her ammonia level is normal. Bilirubin was 23.9. Prior to discharge she is receiving albumin and has been started on norepinephrine. She will be transferred by ambulance to [facility] in [place]. Her care was graciously accepted in transfer by Dr. Booth. Urine culture has had mixed taylor for growth since admission. Blood cultures are negative since admission. - Patient Instructions Diet: NPO Activity: Bedrest Other/Special Instructions: Transfer to [facility] in [place] - Dx: liver failure with acute kidney injury, alcohol withdrawal and hypokalemia - Discharge Plan *PRESCRIPTION DRUG MONITORING PROGRAM REVIEWED*: No *COPY OF PRESCRIPTION DRUG MONITORING REPORT IN PATIENT SAYDA: No Home Medications: Home Meds NK [No Known Home Meds] 03/04/17 [History] Oxygen Therapy Mode: Room Air Referrals: PCP,None [Primary Care Provider] - - Discharge Summary/Plan Comment DC Time >30 min.: Yes (70 - transfer to acute hospital ) - Patient Data Vitals - Most Recent: Last Vital Signs Temp 36.5 C 02/05/19 08:17 Pulse 103 H 02/05/19 09:22 Resp 11 L 02/05/19 09:22 BP 77/47 L 02/05/19 09:22 Pulse Ox 96 02/05/19 09:22 Weight - Most Recent: 68.039 kg I&O - Last 24 hours: Intake & Output 02/04/19 02/05/19 02/05/19 22:59 06:59 14:59 Intake Total 2961 2277 500 Output Total 50 25 5 Balance 2911 2250 495 Lab Results - Last 24 hrs: Laboratory Results - last 24 hr 02/05/19 02/05/19 02/05/19 Range/Units 04:16 04:16 04:16 WBC 10.1 (4.5-11.0) K/uL RBC 2.87 L (3.30-5.50) M/uL Hgb 10.2 L (12.0-15.0) g/dL Hct 32.0 L (36.0-48.0) % MCV 112 H (80-98) fL MCH 36 H (27-31) pg MCHC 32 (32-36) % Plt Count 137 L (150-400) K/uL Sodium 136 L (140-148) mmol/L Potassium 4.0 (3.6-5.2) mmol/L Chloride 110 H (100-108) mmol/L Carbon Dioxide 14 L (21-32) mmol/L Anion Gap 16.0 H (5.0-14.0) mmol/L BUN 24 H D (7-18) mg/dL Creatinine 2.6 H D (0.6-1.0) mg/dL Est Cr Clr Drug Dosing 24.09 mL/min Estimated GFR (MDRD) 20 L (>60) Glucose 99 (74-106) mg/dL Calcium 6.6 L* (8.5-10.1) mg/dL Total Bilirubin 23.9 H (0.2-1.0) mg/dL AST 76 H (15-37) U/L ALT 33 (12-78) U/L Alkaline Phosphatase 198 H (46-116) U/L Ammonia 9 L (11-32) mmol/L Total Protein 4.8 L (6.4-8.2) g/dL Albumin 1.2 L (3.4-5.0) g/dL Globulin 3.6 H (2.3-3.5) g/dL Albumin/Globulin Ratio 0.3 L (1.2-2.2) ELEONORA Results - Last 24 hrs: Microbiology 02/01/19 18:57 Urine Culture - Final Urine, Clean Catch MIXED TAYLOR DAY 2 02/01/19 16:47 Urine Culture - Final Urine, Clean Catch MIXED TAYLOR DAY 2 Med Orders - Current: Current Medications Folic Acid (Folic Acid) 1 mg PO DAILY [facility]MA Last Admin: 02/05/19 08:52 Dose: Not Given Gabapentin (Neurontin) 400 mg PO BID [facility] Stop: 02/07/19 09:01 Potassium Chloride/Sodium Chloride (Normal Saline With 20 Meq Kcl) 1,000 mls @ 100 mls/hr IV ASDIRECTED [facility]MA Last Admin: 02/05/19 02:32 Dose: 100 mls/hr Albumin Human (Albumin 25%) 25 gm in 100 mls @ 25 mls/hr IV ONETIME ONE Stop: 02/05/19 13:29 Last Admin: 02/05/19 09:32 Dose: 25 mls/hr Norepinephrine Bitartrate 4 mg (/ Dextrose/Water) 250 mls @ 7.5 mls/hr IV TITRATE [facility]MA; Protocol Last Admin: 02/05/19 09:29 Dose: 2 mcg/min, 7.5 mls/hr Ibuprofen (Motrin) 400 mg PO Q6H PRN PRN Reason: Fever Last Admin: 02/04/19 21:18 Dose: 400 mg Lorazepam (Ativan) 0 mg IV ASDIRECTED EMMA; Protocol Last Admin: 02/04/19 18:15 Dose: 1 mg Lorazepam (Ativan) 0 mg PO ASDIRECTED EMMA; Protocol Last Admin: 02/02/19 12:49 Dose: 2 mg Lorazepam (Ativan) 2 mg IVPUSH Q1H PRN PRN Reason: Agitation Last Admin: 02/04/19 07:52 Dose: 2 mg Lorazepam (Ativan) 4 mg IVPUSH Q1H PRN PRN Reason: Agitation Pantoprazole Sodium (Protonix) 40 mg PO BEDTIME [facility] Last Admin: 02/04/19 21:17 Dose: 40 mg Thiamine HCl (Vitamin B-1) 100 mg PO DAILY EMMA Last Admin: 02/05/19 08:52 Dose: Not Given Discontinued Medications Gabapentin (Neurontin) 400 mg PO Q8H [facility] Stop: 02/06/19 02:01 Last Admin: 02/05/19 04:29 Dose: 400 mg Potassium Chloride/Sodium Chloride (Normal Saline With 20 Meq Kcl) 1,000 mls @ 500 mls/hr IV ASDIRECTED [facility] Last Admin: 02/01/19 17:01 Dose: 500 mls/hr Magnesium Sulfate 2 gm/ Premix 50 mls @ 12.5 mls/hr IV ONETIME ONE Stop: 02/01/19 21:55 Last Admin: 02/01/19 18:32 Dose: 12.5 mls/hr Potassium Chloride 20 meq/ (Premix) 100 mls @ 50 mls/hr IV ONETIME ONE Stop: 02/01/19 20:50 Last Admin: 02/01/19 21:41 Dose: 50 mls/hr Potassium Chloride 20 meq/ (Premix) 100 mls @ 50 mls/hr IV ONETIME ONE Stop: 02/01/19 20:51 Last Admin: 02/02/19 01:25 Dose: 50 mls/hr Multivitamins/Minerals 10 ml/Thiamine HCl 100 mg/ Folic Acid 1 mg/ Magnesium Sulfate 2 gm/ Sodium Chloride 1,015.2 mls @ 999 mls/hr IV ONETIME ONE Stop: 02/02/19 03:00 Last Admin: 02/02/19 01:29 Dose: 999 mls/hr Ceftriaxone Sodium 1 gm/ (Sodium Chloride) 50 mls @ 100 mls/hr IV ONETIME ONE Stop: 02/01/19 20:55 Last Admin: 02/01/19 22:28 Dose: 100 mls/hr Potassium Chloride/Sodium Chloride (Normal Saline With 20 Meq Kcl) 1,000 mls @ 125 mls/hr IV ASDIRECTED [facility] Last Admin: 02/02/19 10:30 Dose: 125 mls/hr Potassium Chloride 20 meq/Lidocaine HCl 2 ml/ Sodium Chloride 112 mls @ 56 mls/ hr IV Q2H [facility] Stop: 02/02/19 13:59 Last Admin: 02/02/19 12:40 Dose: 56 mls/hr Potassium Chloride/Sodium Chloride (Normal Saline With 20 Meq Kcl) 1,000 mls @ 60 mls/hr IV ASDIRECTED [facility] Last Admin: 02/04/19 14:37 Dose: 60 mls/hr Ceftriaxone Sodium 1 gm/ (Sodium Chloride) 50 mls @ 100 mls/hr IV Q24H [facility] Stop: 02/06/19 21:01 Last Admin: 02/03/19 21:08 Dose: 100 mls/hr Potassium Chloride 20 meq/Lidocaine HCl 2 ml/ Sodium Chloride 112 mls @ 56 mls/ hr IV Q2H [facility] Stop: 02/03/19 12:59 Last Admin: 02/03/19 10:49 Dose: 56 mls/hr Magnesium Sulfate 2 gm/ Premix 50 mls @ 25 mls/hr IV Q6H [facility] Stop: 02/03/19 16:59 Last Admin: 02/03/19 15:03 Dose: 25 mls/hr Potassium Chloride 20 meq/Lidocaine HCl 2 ml/ Sodium Chloride 112 mls @ 56 mls/ hr IV Q2H [facility] Stop: 02/04/19 13:59 Last Admin: 02/04/19 12:45 Dose: 56 mls/hr Sodium Chloride (Normal Saline) 1,000 mls @ 500 mls/hr IV ASDIRECTED [facility] Stop: 02/04/19 11:01 Last Admin: 02/04/19 09:16 Dose: 500 mls/hr Sodium Chloride (Normal Saline) 1,000 mls @ 500 mls/hr IV ASDIRECTED [facility] Stop: 02/04/19 19:01 Last Admin: 02/04/19 16:58 Dose: 500 mls/hr Sodium Chloride (Normal Saline) 1,000 mls @ 500 mls/hr IV ONETIME ONE Stop: 02/05/19 00:10 Last Admin: 02/04/19 22:23 Dose: 500 mls/hr Sodium Chloride (Normal Saline) 500 mls @ 999 mls/hr IV ONETIME ONE Stop: 02/05/19 08:45 Last Admin: 02/05/19 08:24 Dose: 999 mls/hr Lidocaine HCl (Xylocaine-Mpf 1%) 5 ml INJECT ONETIME ONE Stop: 02/01/19 20:59 Last Admin: 02/01/19 21:56 Dose: 5 ml Lorazepam (Ativan) 2 mg IVPUSH ONETIME ONE Stop: 02/01/19 19:15 Last Admin: 02/01/19 19:53 Dose: 2 mg Nitrofurantoin Macrocrystals (Macrobid) 100 mg PO ONETIME ONE Stop: 02/01/19 17:41 Last Admin: 02/01/19 19:57 Dose: Not Given Ondansetron HCl (Zofran) 4 mg IVPUSH ONETIME ONE Stop: 02/01/19 18:28 Last Admin: 02/01/19 18:42 Dose: 4 mg Pantoprazole Sodium (Protonix Iv) 40 mg IV DAILY [facility] Last Admin: 02/01/19 21:58 Dose: 40 mg Pantoprazole Sodium (Protonix Iv) 40 mg IV BEDTIME [facility] Last Admin: 02/02/19 21:02 Dose: 40 mg Potassium Chloride (Potassium Chloride) 40 meq PO ONETIME ONE Stop: 02/01/19 17:42 Last Admin: 02/01/19 19:57 Dose: Not Given Potassium Chloride (Klor-Con M20) 40 meq PO ONETIME ONE Stop: 02/02/19 09:31 Last Admin: 02/02/19 10:29 Dose: 40 meq Potassium Chloride (Klor-Con M20) 40 meq PO ONETIME ONE Stop: 02/03/19 09:01 Last Admin: 02/03/19 08:39 Dose: 40 meq - Exam Quality Assessment: Denies: Supplemental Oxygen General: Reports: Alert, Cooperative, Lethargic. Denies: Oriented HEENT: Reports: Pupils Equal Lungs: Reports: Clear to Auscultation, Normal Respiratory Effort Cardiovascular: Reports: Regular Rhythm, No Murmurs, Tachycardia GI/Abdominal Exam: Soft, Distended, Tender, Other (hematoma left lower abdomen ) Extremities: No Pedal Edema. No: Increased Warmth Skin: Reports: Warm, Dry Psy/Mental Status: Reports: Alert. Denies: Agitated
[2019-02-05 10:14] VITALS: PULSE 105
[2019-02-05 10:22] VITALS: BP 92/58
[2019-02-05] MEDS ORDERED: Gabapentin 400 MG Cap PO SCH (21:00)
== END 2019-02-05 11:27 | DRG 432 ==
LOC: JP.ED 15:42 → JP.MS 19:56 → JP.ICU 02-02 11:32
PROVIDERS: ADMIT Hospitalist; ATTEND Internal Medicine
DX: K70.11 Alcoholic hepatitis with ascites (principal); K85.20 Alcohol induced acute pancreatitis without necrosis or infection; F10.231 Alcohol dependence with withdrawal delirium; N17.9 Acute kidney failure, unspecified; E87.1 Hypo-osmolality and hyponatremia; N39.0 Urinary tract infection, site not specified; E87.6 Hypokalemia; E83.42 Hypomagnesemia; K76.0 Fatty (change of) liver, not elsewhere classified; H54.7 Unspecified visual loss; D64.9 Anemia, unspecified; Z88.8 Allergy status to other drugs, medicaments and biological substances; Z88.2 Allergy status to sulfonamides
CPT/HCPCS: 36415; 51702; 76705; 80048; 80053; 80076; 80305-QW; 81001; 82140; 82150; 82962; 83690; 83735; 84132; 84703; 85025; 85027; 85610; 87086; 94762; 96365; 96375; 99285-25; A9270-GY; C9113; G0480; J0696; J2001; J2060; J2405; J3411; J3475; J3480; J3490; J7030; J7040; J7050; J7060; P9047